=== PATIENT | female | born 1980 | race Caucasian/White ===

== ENCOUNTER → 2016-04-14 | Outpatient (CLI) | payer BC ==
[~2016-04-14] MED LIST: GLUC500T PO; IBUP80TA PO; INSUN SC; INSUR SC; PRENTAB13 PO
== END ==
LOC: M LAB 12:30
PROVIDERS: ATTEND Obstetrics & Gynecology
DX: O20.0 Threatened abortion (principal); Z3A.00 Weeks of gestation of pregnancy not specified

== ENCOUNTER → 2016-04-17 | Outpatient (CLI) | payer BC | LOC: M LAB 14:52 | PROVIDERS: ATTEND Obstetrics & Gynecology | DX: O20.0 Threatened abortion (principal); Z3A.00 Weeks of gestation of pregnancy not specified ==

== ENCOUNTER → 2016-04-24 | Outpatient (CLI) | payer BC | LOC: M LAB 16:11 | PROVIDERS: ATTEND Obstetrics & Gynecology | DX: O02.1 Missed abortion (principal) ==

== ENCOUNTER → 2016-05-08 | Outpatient (CLI) | payer BC | LOC: M LAB 16:04 | PROVIDERS: ATTEND Obstetrics & Gynecology | DX: O02.1 Missed abortion (principal) ==

== ENCOUNTER → 2017-04-02 | Outpatient (CLI) | payer BC ==
[2017-04-02 19:03] LABS: BASO % 0.2 % (0.0-1.0); EOS % 0.5 % (0.0-3.0); HEMATOCRIT 37.4 % (36.0-47.0); HEMOGLOBIN 12.4 g/dl (12.0-16.0); IMMATURE GRANULOCYTE % 0.5 % (0-0); LYMPH # 1.1 10^3/uL (1.5-4.5); LYMPH % 12.5 % (24.0-44.0); MEAN CORPUSCULAR HEMOGLOBIN 28.1 pg (27.0-33.0); MEAN CORPUSCULAR HGB CONC 33.2 g/dl (32.0-36.5); MEAN CORPUSCULAR VOLUME 84.6 fl (80.0-96.0); MONO # 0.4 10^3/uL (0.0-0.8); MONO % 4.2 % (0.0-5.0); NEUTROPHILS % 82.1 % (36.0-66.0); PLATELET COUNT, AUTOMATED 142 10^3/uL (150-450); RED BLOOD COUNT 4.42 10^6/uL (4.00-5.40); RED CELL DISTRIBUTION WIDTH 13.1 % (11.5-14.5); WHITE BLOOD COUNT 8.5 10^3/uL (4.0-10.0)
[2017-04-02 19:48] LABS: ESTIMATED AVERAGE GLUCOSE 220 MG/DL (60-110); HEMOGLOBIN A1c 9.3 %
[2017-04-02 22:07] LABS: CHLAMYDIA DNA AMPLIFICATION NEGATIVE (NEGATIVE); GC DNA AMPLIFICATION NEGATIVE (NEGATIVE)
[2017-04-05 09:00] LABS: RUBELLA IgG QUALITATIVE IMMUNE (IMMUNE)
[2017-04-05 09:02] LABS: HBsAg Prenatal NEGATIVE (NEGATIVE)
[2017-04-05 09:29] LABS: HEPATITIS C VIRUS ABY INDEX 0.1 INDEX (<0.8)
[2017-04-05 09:30] LABS: HIV 1&2 SCREEN CENTAUR NEGATIVE (NEGATIVE)
== END ==
LOC: M WUC 13:20
DX: O24.011 Pre-existing type 1 diabetes mellitus, in pregnancy, first trimester (principal); Z3A.11 11 weeks gestation of pregnancy
CPT/HCPCS: 83036

== ENCOUNTER → 2017-04-20 | Outpatient (CLI) | payer BC ==
[2017-04-20 13:54] LABS: TOTAL PROTEIN,RANDOM URINE 5.5 MG/DL (0.0-12.0)
[2017-04-20 14:12] LABS: ALT/SGPT 23 U/L (12-78); AST/SGOT 10 U/L (7-37); BILIRUBIN,TOTAL 0.2 MG/DL (0.2-1.0); CREATININE FOR GFR 0.48 MG/DL (0.55-1.02); GLOMERULAR FILTRATION RATE > 60.0 (>60); LDH LACTATE DEHYDROGENASE 150 U/L (84-246); URIC ACID 3.1 MG/DL (2.6-6.0)
== END ==
LOC: M WUC 10:45
DX: O24.011 Pre-existing type 1 diabetes mellitus, in pregnancy, first trimester (principal); Z3A.00 Weeks of gestation of pregnancy not specified
CPT/HCPCS: 84460

== ENCOUNTER → 2017-04-21 | Outpatient (CLI) | payer BC | LOC: M SMT 15:52 | DX: Z13.79 Encounter for other screening for genetic and chromosomal anomalies (principal) | CPT/HCPCS: 36415 ==

== ENCOUNTER → 2017-05-06 | Outpatient (CLI) | payer BC | LOC: M SMT 11:01 | DX: Z13.79 Encounter for other screening for genetic and chromosomal anomalies (principal) | CPT/HCPCS: 36415 ==

== ENCOUNTER → 2017-05-19 | Outpatient (CLI) | payer BC | LOC: M SMT 15:55 | DX: O09.522 Supervision of elderly multigravida, second trimester (principal); Z13.79 Encounter for other screening for genetic and chromosomal anomalies; Z3A.00 Weeks of gestation of pregnancy not specified | CPT/HCPCS: 36415 ==

== ENCOUNTER → 2017-07-01 | Outpatient (CLI) | payer BC ==
[2017-07-01 13:30] LABS: BASO % 0.2 % (0.0-1.0); EOS # 0.1 10^3/uL (0.0-0.50); EOS % 0.6 % (0.0-3.0); HEMATOCRIT 36.6 % (36.0-47.0); HEMOGLOBIN 12.2 g/dl (12.0-15.5); IMMATURE GRANULOCYTE % 0.9 % (0-3.0); LYMPH # 1.3 10^3/uL (1.5-4.5); LYMPH % 13.1 % (24.0-44.0); MEAN CORPUSCULAR HEMOGLOBIN 28.2 pg (27.0-33.0); MEAN CORPUSCULAR HGB CONC 33.3 g/dl (32.0-36.5); MEAN CORPUSCULAR VOLUME 84.5 fl (80.0-96.0); MONO # 0.5 10^3/uL (0.0-0.8); MONO % 5.4 % (0.0-5.0); NEUTROPHILS # 7.9 10^3/uL (1.8-7.7); NEUTROPHILS % 79.8 % (36.0-66.0); PLATELET COUNT, AUTOMATED 145 10^3/uL (150-450); RED BLOOD COUNT 4.33 10^6/uL (4.00-5.40); RED CELL DISTRIBUTION WIDTH 13.5 % (11.5-14.5); WHITE BLOOD COUNT 9.9 10^3/uL (4.0-10.0)
[2017-07-02 08:41] LABS: RH ONLY RHOGAM 1 1
== END ==
LOC: M SMT 08:40
DX: O24.112 Pre-existing type 2 diabetes mellitus, in pregnancy, second trimester (principal)
CPT/HCPCS: 85025

== ENCOUNTER → 2017-08-03 | Outpatient (CLI) | payer BC | LOC: M RAD 17:19 | DX: Z34.80 Encounter for supervision of other normal pregnancy, unspecified trimester (principal) ==

== ENCOUNTER → 2017-08-05 | Outpatient (CLI) | payer BC | LOC: M RAD 11:37 | DX: O24.012 Pre-existing type 1 diabetes mellitus, in pregnancy, second trimester (principal) | CPT/HCPCS: 76819 ==

== ENCOUNTER → 2017-08-16 | Outpatient (CLI) | payer BC | LOC: M RAD 17:17 | DX: O24.012 Pre-existing type 1 diabetes mellitus, in pregnancy, second trimester (principal); Z3A.32 32 weeks gestation of pregnancy | CPT/HCPCS: 76815 ==

== ENCOUNTER → 2017-08-24 | Outpatient (CLI) | payer BC ==
[2017-08-24 11:41] LABS: ESTIMATED AVERAGE GLUCOSE 134 MG/DL (60-110); HEMOGLOBIN A1c 6.3 %
== END ==
LOC: M SMT 09:45
DX: O24.013 Pre-existing type 1 diabetes mellitus, in pregnancy, third trimester (principal); Z36.89 Encounter for other specified antenatal screening
CPT/HCPCS: 83036

== ENCOUNTER → 2017-08-24 | Outpatient (CLI) | payer BC | LOC: M RAD 17:03 | DX: O24.013 Pre-existing type 1 diabetes mellitus, in pregnancy, third trimester (principal); Z3A.32 32 weeks gestation of pregnancy | CPT/HCPCS: 76815 ==

== ENCOUNTER → 2017-08-30 | Outpatient (CLI) | payer BC | LOC: M RAD 17:18 | DX: E11.9 Type 2 diabetes mellitus without complications (principal) ==

== ENCOUNTER → 2017-09-06 | Outpatient (CLI) | payer BC | LOC: M RAD 17:22 | DX: O24.012 Pre-existing type 1 diabetes mellitus, in pregnancy, second trimester (principal); Z3A.34 34 weeks gestation of pregnancy | CPT/HCPCS: 76815 ==

== ENCOUNTER → 2017-09-14 | Outpatient (CLI) | payer BC | LOC: M RAD 17:40 | DX: O24.012 Pre-existing type 1 diabetes mellitus, in pregnancy, second trimester (principal) | CPT/HCPCS: 76815 ==

== ENCOUNTER 2017-09-21 18:24 | Inpatient (IN) | payer BC ==
[2017-09-21] MEDS ORDERED: LR 1,000 ML IV (21:05)
[2017-09-21] MEDS: LACTATED RINGER'S 1000 ML IV (22:00)
[2017-09-21] MEDS ORDERED: D5W/0.9% SODIUM CHLORIDE 1,000 ML IV (22:00)
[2017-09-21] MEDS: BETAMETHASONE SOLUSPAN 6MG/ML INJ 5ML (J0702) IM (22:01)
[2017-09-21] MEDS: miSOPROStol 50 MCG 1/2 TAB (S0191) SL (22:01)
[2017-09-21 22:10] LABS: HEMATOCRIT 33.1 % (36.0-47.0); HEMOGLOBIN 11.2 g/dl (12.0-15.5); MEAN CORPUSCULAR HEMOGLOBIN 27.4 pg (27.0-33.0); MEAN CORPUSCULAR HGB CONC 33.8 g/dl (32.0-36.5); MEAN CORPUSCULAR VOLUME 80.9 fl (80.0-96.0); PLATELET COUNT, AUTOMATED 122 10^3/uL (150-450); RED BLOOD COUNT 4.09 10^6/uL (4.00-5.40); RED CELL DISTRIBUTION WIDTH 14.2 % (11.5-14.5); WHITE BLOOD COUNT 11.5 10^3/uL (4.0-10.0)
[2017-09-21 22:17] LABS: BEDSIDE GLUCOSE 140 MG/DL (70-105)
[2017-09-21] MEDS: PENICILLIN G POTASSIUM IV 5 MU in D5W MINI-BAG PLUS 100 ML IV (22:31)
[2017-09-21] MEDS: NS 1,000 ML IV (22:45)
[2017-09-21] MEDS: INSULIN HUMAN REGULAR 100 UNITS in NS 99 ML IV (22:45)
[2017-09-21 23:59] LABS: BEDSIDE GLUCOSE 130 MG/DL (70-105)
[2017-09-22] MEDS: INSULIN IV RATE CHANGE DOCUMENTATION ML/HR XX (02:03)
[2017-09-22] MEDS ORDERED: miSOPROStol 25 MCG 1/4 TAB (S0191) As Ordered (02:14)
[2017-09-22] MEDS: PENICILLIN G POTASSIUM IV 2.5 MU in APPROPRIATE DILUENT 1 EA IV ×4 (02:16→14:37)
[2017-09-22] MEDS: miSOPROStol 25 MCG 1/4 TAB (S0191) PV (02:30)
[2017-09-22 04:01] LABS: BEDSIDE GLUCOSE 137 MG/DL (70-105)
[2017-09-22 06:07] LABS: BEDSIDE GLUCOSE 143 MG/DL (70-105)
[2017-09-22] MEDS: OXYTOCIN DRIP 30 UNITS in APPROPRIATE DILUENT 1 EA IV ×2 (06:56→17:45)
[2017-09-22 07:40] LABS: BEDSIDE GLUCOSE 136 MG/DL (70-105)
[2017-09-22] MEDS: PRENATAL VITAMINS CHEWABLE TABLET PO (09:00)
[2017-09-22] MEDS ORDERED: FENTANYL 2MCG/ML ROPIVACAINE 0.2% IN 0.9% NACL 200ML IVBAG As Ordered (11:20)
[2017-09-22 12:03] LABS: BEDSIDE GLUCOSE 128 MG/DL (70-105)
[2017-09-22 12:03] LABS: BEDSIDE GLUCOSE 153 MG/DL (70-105)
[2017-09-22 12:06] LABS: BEDSIDE GLUCOSE 151 MG/DL (70-105)
[2017-09-22] MEDS ORDERED: ONDANSETRON 4MG/2ML VIAL (J2405) IV ×3 (12:30→18:00)
[2017-09-22] MEDS ORDERED: FENTANYL/ROPIVACAINE/NACL BAG 200 ML EPIDURAL (12:30)
[2017-09-22] MEDS ORDERED: EPIDURAL/PCA KEYS XX (12:30)
[2017-09-22] MEDS ORDERED: NALOXONE INJ 0.4 MG/1 ML VIAL (J2310) IV (12:30)
[2017-09-22] MEDS ORDERED: diphenhydrAMINE INJ 50MG/ML VIAL (J1200) IV (12:30)
[2017-09-22] MEDS ORDERED: LACTATED RINGER'S 1000 ML IV (12:30)
[2017-09-22] MEDS ORDERED: ePHEDrine SULFATE 25 MG/5 ML(5MG/ML) SYRINGE IV (12:30)
[2017-09-22] MEDS ORDERED: EPIDURAL COMMENT XX (12:30)
[2017-09-22] MEDS ORDERED: REFRIGERATOR IV KEYS XX (12:30)
[2017-09-22 14:12] LABS: BEDSIDE GLUCOSE 133 MG/DL (70-105)
[2017-09-22] MEDS ORDERED: LR 1,000 ML IV (15:27)
[2017-09-22] MEDS ORDERED: OXYTOCIN INJ 10 UNITS/ML VIAL (J2590) As Ordered ×4 (15:53→15:54)
[2017-09-22] MEDS ORDERED: LIDOCAINE 2% W/EPIN INJ 20ML **PRES FREE As Ordered ×2 (15:53)
[2017-09-22] MEDS ORDERED: ONDANSETRON 4MG/2ML VIAL (J2405) As Ordered (15:55)
[2017-09-22] MEDS ORDERED: SODIUM BICARBONATE 8.4% INJ 50 ML SYRINGE As Ordered (15:56)
[2017-09-22] MEDS: BICITRA 30ML SOLN UDC PO (15:58)
[2017-09-22] MEDS ORDERED: MORPHINE PRES-FREE INJ 10 MG/10 ML VIAL (J2274) As Ordered (16:00)
[2017-09-22] MEDS ORDERED: PHENYLephrine HCL 500 MCG/5 ML (100MCG/ML) SYRINGE (J2370) As Ordered (16:40)
[2017-09-22] MEDS ORDERED: MEASLES,MUMPS,RUBELLA VACCINE INJ (MMR-II) (90707) SC (17:45)
[2017-09-22] MEDS ORDERED: GLUCAGON FOR INJ 1 MG VIAL (J1610) SC (17:45)
[2017-09-22] MEDS ORDERED: PERCOCET 5MG/325MG TAB PO ×3 (17:45→18:00)
[2017-09-22] MEDS ORDERED: DEXTROSE 50% 50 ML SYRINGE IV (17:45)
[2017-09-22] MEDS ORDERED: GLUCOSE 4 GM CHEW TABLET PO (17:45)
[2017-09-22] MEDS ORDERED: MOM 30ML SUSPENSION UDC PO (17:45)
[2017-09-22] MEDS ORDERED: DOCUSATE SODIUM 100 MG CAP PO (17:45)
[2017-09-22] MEDS ORDERED: OXYTOCIN 30 UNITS IN 0.9% NaCl 500ML IV BAG (J2590) As Ordered (17:54)
[2017-09-22] MEDS ORDERED: MEPERIDINE INJ 25 MG/ML VIAL (J2175) IV (18:00)
[2017-09-22] MEDS ORDERED: KETOROLAC 30 MG/ML VIAL (J1885) IV (18:00)
[2017-09-22 18:28] LABS: CORD GAS ABE A -7.3; CORD GAS HCO3 A 20.1 MEQ/L; CORD GAS O2 SAT A 51.8 %; CORD GAS PCO2 A 47.3 mmHg; CORD GAS PH A 7.247 UNITS; CORD GAS PO2 A 22.9 mmHg; CORD GAS SBC A 17.6 MEQ/L; CORD GAS TCO2 A 21.6 MEQ/L
[2017-09-22 18:29] LABS: CORD GAS ABE V -5.5; CORD GAS HCO3 V 20.6 MEQ/L; CORD GAS O2 SAT V 73.1 %; CORD GAS PCO2 V 42.1 mmHg; CORD GAS PH V 7.307 UNITS; CORD GAS PO2 V 31.1 mmHg; CORD GAS SBC V 19.4 MEQ/L; CORD GAS TCO2 V 21.9 MEQ/L
[2017-09-22] MEDS: LR 1,000 ML IV (19:00)
[2017-09-22 21:06] LABS: BEDSIDE GLUCOSE 174 MG/DL (70-105)
[2017-09-22] MEDS: HumaLOG INSULIN (NovoLOG) PER UNIT SC (21:52)
[2017-09-22] MEDS: KETOROLAC 30 MG/ML VIAL (J1885) IV (22:15)
[2017-09-22 23:46] LABS: BEDSIDE GLUCOSE 198 MG/DL (70-105)
[2017-09-23] MEDS: KETOROLAC 30 MG/ML VIAL (J1885) IV ×3 (03:55→16:03)
[2017-09-23 06:43] LABS: HEMATOCRIT 28.8 % (36.0-47.0); HEMOGLOBIN 9.7 g/dl (12.0-15.5); MEAN CORPUSCULAR HEMOGLOBIN 27.5 pg (27.0-33.0); MEAN CORPUSCULAR HGB CONC 33.7 g/dl (32.0-36.5); MEAN CORPUSCULAR VOLUME 81.6 fl (80.0-96.0); PLATELET COUNT, AUTOMATED 125 10^3/uL (150-450); RED BLOOD COUNT 3.53 10^6/uL (4.00-5.40); RED CELL DISTRIBUTION WIDTH 14.1 % (11.5-14.5); WHITE BLOOD COUNT 12.1 10^3/uL (4.0-10.0)
[2017-09-23 06:54] LABS: BEDSIDE GLUCOSE 184 MG/DL (70-105)
[2017-09-23] MEDS: HumaLOG INSULIN (NovoLOG) PER UNIT SC ×3 (07:04→17:30)
[2017-09-23] MEDS ORDERED: HumuLIN N INSULIN (NovoLIN N) PER UNIT SC (07:30)
[2017-09-23 09:28] LABS: FETAL SCREEN PROF. 1 1
[2017-09-23] MEDS: RHOGAM 300 MCG (1500 IU) INJ (J2790) IM (09:52)
[2017-09-23] MEDS: PRENATAL VITAMINS CHEWABLE TABLET PO (09:52)
[2017-09-23 10:31] LABS: BEDSIDE GLUCOSE 213 MG/DL (70-105)
[2017-09-23] MEDS: HumuLIN N INSULIN (NovoLIN N) PER UNIT SC ×2 (10:35→18:03)
[2017-09-23 12:21] LABS: BEDSIDE GLUCOSE 159 MG/DL (70-105)
[2017-09-23 17:41] LABS: BEDSIDE GLUCOSE 173 MG/DL (70-105)
[2017-09-23] MEDS: HumuLIN R (REGULAR) INSULIN (NovoLIN R) **100U/ML** PER UNIT SC (18:03)
[2017-09-23 21:44] LABS: BEDSIDE GLUCOSE 180 MG/DL (70-105)
[2017-09-24] MEDS: IBUPROFEN 800 MG TAB PO ×4 (00:21→23:52)
[2017-09-24 06:52] LABS: BEDSIDE GLUCOSE 146 MG/DL (70-105)
[2017-09-24] MEDS: HumaLOG INSULIN (NovoLOG) PER UNIT SC ×3 (07:30→18:02)
[2017-09-24] MEDS: PRENATAL VITAMINS CHEWABLE TABLET PO (08:47)
[2017-09-24] MEDS: HumuLIN R (REGULAR) INSULIN (NovoLIN R) **100U/ML** PER UNIT SC ×2 (08:49→18:03)
[2017-09-24] MEDS: HumuLIN N INSULIN (NovoLIN N) PER UNIT SC ×2 (08:49→18:05)
[2017-09-24 12:44] LABS: BEDSIDE GLUCOSE 113 MG/DL (70-105)
[2017-09-24 17:56] LABS: BEDSIDE GLUCOSE 122 MG/DL (70-105)
[2017-09-24 20:22] LABS: BEDSIDE GLUCOSE 119 MG/DL (70-105)
[2017-09-24 23:59] LABS: BEDSIDE GLUCOSE 69 MG/DL (70-105)
[2017-09-25 01:23] LABS: BEDSIDE GLUCOSE 129 MG/DL (70-105)
[2017-09-25 06:49] LABS: BEDSIDE GLUCOSE 79 MG/DL (70-105)
[2017-09-25] MEDS: HumuLIN R (REGULAR) INSULIN (NovoLIN R) **100U/ML** PER UNIT SC ×2 (07:30→09:14)
[2017-09-25] MEDS: HumuLIN N INSULIN (NovoLIN N) PER UNIT SC ×2 (07:30→09:20)
[2017-09-25] MEDS: HumaLOG INSULIN (NovoLOG) PER UNIT SC (07:30)
[2017-09-25 08:35] LABS: BEDSIDE GLUCOSE 118 MG/DL (70-105)
[2017-09-25] MEDS: PRENATAL VITAMINS CHEWABLE TABLET PO (08:50)
[2017-09-25] MEDS: IBUPROFEN 800 MG TAB PO (08:51)
[2017-09-25 09:21] LABS: BEDSIDE GLUCOSE 151 MG/DL (70-105)
[2017-09-25] MEDS: ADACEL/BOOSTRIX VACCINE (DIPHTH/PERTUSS/ACELL/TETANUS)0.5ML SYR (90715) IM (10:15)
== END 2017-09-25 10:40 | disposition home or self-care (01) | DRG 540 ==
LOC: M LDO 18:24 → M OBS 09-22 19:18 → M LDI 21:08
PROVIDERS: Obstetrics & Gynecology
PROC: 10D00Z1 Extraction of Products of Conception, Low, Open Approach (ICD-10-PCS; principal; 2017-09-22 16:15)
PROC: 3E0P7VZ Introduction of Hormone into Female Reproductive, Via Natural or Artificial Opening (ICD-10-PCS; 2017-09-22 16:15)
DX: O24.32 Unspecified pre-existing diabetes mellitus in childbirth (principal); Z68.43 Body mass index [BMI] 50.0-59.9, adult; O99.214 Obesity complicating childbirth; E66.01 Morbid (severe) obesity due to excess calories; O62.0 Primary inadequate contractions; Z37.0 Single live birth; Z3A.36 36 weeks gestation of pregnancy; O09.523 Supervision of elderly multigravida, third trimester

== ENCOUNTER → 2017-09-21 | Outpatient (CLI) | payer BC | LOC: M RAD 17:12 | DX: O24.012 Pre-existing type 1 diabetes mellitus, in pregnancy, second trimester (principal) | CPT/HCPCS: 76819 ==

== ENCOUNTER → 2018-04-25 | Outpatient (REF) | payer BC ==
[~2018-04-25] MED LIST changes: +IBUP1TAB7 PO; +OXYC1TAB23 PO; -PRENTAB13 PO; +PRENTAB20 PO
[2018-04-25 17:57] LABS: BASO % 0.2 % (0.0-1.0); EOS # 0.2 10^3/uL (0.0-0.50); EOS % 1.9 % (0.0-3.0); HEMATOCRIT 41.3 % (36.0-47.0); HEMOGLOBIN 13.8 g/dl (12.0-15.5); MEAN CORPUSCULAR HEMOGLOBIN 27.1 pg (27.0-33.0); MEAN CORPUSCULAR HGB CONC 33.4 g/dl (32.0-36.5); MONO # 0.5 10^3/uL (0.0-0.8); MONO % 6.4 % (0.0-5.0); NEUTROPHILS # 5.5 10^3/uL (1.8-7.7); NEUTROPHILS % 67.1 % (36.0-66.0); PLATELET COUNT, AUTOMATED 169 10^3/uL (150-450); WHITE BLOOD COUNT 8.3 10^3/uL (4.0-10.0)
[2018-04-25 18:04] LABS: ALBUMIN 3.7 GM/DL (3.2-5.2); ALT/SGPT 29 U/L (12-78); BILIRUBIN,TOTAL 0.3 MG/DL (0.2-1.0); BLOOD UREA NITROGEN 12 MG/DL (7-18); CARBON DIOXIDE LEVEL 26 MEQ/L (21-32); CHLORIDE LEVEL 102 MEQ/L (98-107); CHOLESTEROL LEVEL 196 MG/DL (<200); CHOLESTEROL RISK RATIO 7.538 (<5); GLOMERULAR FILTRATION RATE > 60.0 (>58); GLUCOSE, FASTING 178 MG/DL (70-100); HDL CHOLESTEROL 26 MG/DL (>40); NON-HDL-C 170 MG/DL; POTASSIUM SERUM 4.7 MEQ/L (3.5-5.1); SODIUM LEVEL 137 MEQ/L (136-145); TOTAL PROTEIN 7.1 GM/DL (6.4-8.2); TRIGLYCERIDES LEVEL 459 MG/DL (<150)
[2018-04-25 18:19] LABS: CREATININE, URINE 67.2 MG/DL; MALB URINE SIEMENS 12.4 MG/L; MAU/CREAT RATIO 18.4 MCG/MG (0.0-30.0)
[2018-04-25 18:30] LABS: HEMOGLOBIN A1c 10.7 %
== END ==
LOC: M SFHCLERA 12:36
PROVIDERS: ATTEND Family Medicine
DX: E11.65 Type 2 diabetes mellitus with hyperglycemia (principal)

== ENCOUNTER → 2018-04-25 | Outpatient (REF) | payer BC ==
[2018-04-29 00:07] LABS: HPV HYBRID CAPTURE II Negative (Negative)
== END ==
LOC: M LAB REF 09:34
PROVIDERS: ATTEND Obstetrics & Gynecology
DX: Z12.4 Encounter for screening for malignant neoplasm of cervix (principal)

== ENCOUNTER → 2018-05-03 | Outpatient (CLI) | payer BC ==
--- NOTE | 2018-05-03 17:00 | REPMRS ---
Patient History The patient states she had a clinical breast exam in March 2018.Patient had first child at age 34. denied. Patient Shielded. Family history of ovarian cancer at age 47 in mother. Digital Mammo Screening Bilat: May 03, 2018 - Exam #: [id number] Bilateral CC and MLO view(s) were taken. Technologist: Yusra Means, Technologist No prior studies available for comparison. FINDINGS: There are scattered fibroglandular densities. There is no evidence of dominant mass, architectural distortion, or clustered microcalcification typical of malignancy. 3-D tomosynthesis shows no additional findings. Assessment: BI-RADS/ACR category 1 mammogram. Negative Mammogram. Recommendation Routine screening mammogram of both breasts in 1 year (for women over age 40). This patient's Lifetime Breast Cancer RIsk is estimated at 16.9 %. This mammogram was interpreted with the aid of an FDA-approved computer-aided dectection system. Electronically Signed By: Corey Ramirez MD 05/03/18 [id number]
== END ==
LOC: M RAD 12:50
PROVIDERS: ATTEND Obstetrics & Gynecology
DX: Z12.31 Encounter for screening mammogram for malignant neoplasm of breast (principal)

== ENCOUNTER 2018-05-30 14:25 | Observation (INO) | payer BC, OTHER ==
[~2018-05-30] VITALS: Ht 167.6 cm; Wt 137.3 kg
[2018-05-30] MEDS ORDERED: PERCOCET 5MG/325MG TAB PO ONE (18:00)
[2018-05-30 18:21] LABS: HEMOGLOBIN 14.3 g/dl (12.0-15.5); MEAN CORPUSCULAR HEMOGLOBIN 26.8 pg (27.0-33.0); MEAN CORPUSCULAR HGB CONC 32.5 g/dl (32.0-36.5); MEAN CORPUSCULAR VOLUME 82.4 fl (80.0-96.0); PLATELET COUNT, AUTOMATED 177 10^3/uL (150-450); RED BLOOD COUNT 5.34 10^6/uL (4.00-5.40); WHITE BLOOD COUNT 11.3 10^3/uL (4.0-10.0)
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
[2018-05-30 19:28] LABS: BLOOD UREA NITROGEN 13 MG/DL (7-18); CALCIUM LEVEL 7.7 MG/DL (8.5-10.1); CARBON DIOXIDE LEVEL 22 MEQ/L (21-32); CHLORIDE LEVEL 105 MEQ/L (98-107); CREATININE FOR GFR 0.84 MG/DL (0.55-1.30); GLOMERULAR FILTRATION RATE > 60.0 (>58); GLUCOSE, FASTING 262 MG/DL (70-100); POTASSIUM SERUM 4.6 MEQ/L (3.5-5.1); SODIUM LEVEL 136 MEQ/L (136-145)
[2018-05-30] MEDS ORDERED: ISOVUE-370 76% 100ML VIAL (Q9967) As Ordered ONE (19:37)
[2018-05-30] MEDS ORDERED: PERCOCET 5MG/325MG TAB PO PRN (22:30)
[2018-05-30] MEDS ORDERED: KETOROLAC 30 MG/ML VIAL (J1885) IV PRN (22:30)
[2018-05-30] MEDS ORDERED: ACETAMINOPHEN TAB 650MG DOSE (2X325MG) PO PRN (22:30)
[2018-05-30] MEDS ORDERED: DEXTROSE 50% 50 ML SYRINGE IV PRN (22:30)
[2018-05-30] MEDS ORDERED: GLUCAGON FOR INJ 1 MG VIAL (J1610) SC PRN (22:30)
[2018-05-30] MEDS ORDERED: GLUCOSE 4 GM CHEW TABLET PO PRN (22:30)
[2018-05-30] MEDS ORDERED: ONDANSETRON 4MG/2ML VIAL (J2405) IV PRN (22:30)
[2018-05-30] MEDS ORDERED: MORPHINE 4 MG/ML 1ML VIAL/SYRINGE (J2270) IV PRN (22:30)
[2018-05-30] MEDS ORDERED: INSUN SC (22:44)
[2018-05-30 23:45] VITALS: BP 128/82
[2018-05-31] MEDS: PERCOCET 5MG/325MG TAB PO PRN ×2 (03:19→12:56)
[2018-05-31 04:45] VITALS: BP 124/56
--- NOTE | 2018-05-31 08:23 | REP ---
PA and lateral chest: Comparison is the right rib series dated 05/30/2018. Lung hoffman are clear. Cardiac size is normal. The jakub, mediastinum, skeletal structures are unremarkable. Impression: Negative PA and lateral chest. Electronically Signed by Juan Daniel Singletary MD 05/31/2018 08:14 A
[2018-05-31 08:40] LABS: BASO % 0.2 % (0.0-1.0); EOS # 0.1 10^3/uL (0.0-0.50); EOS % 1.5 % (0.0-3.0); HEMATOCRIT 40.3 % (36.0-47.0); LYMPH # 1.2 10^3/uL (1.5-4.5); LYMPH % 19.5 % (24.0-44.0); MEAN CORPUSCULAR HEMOGLOBIN 26.6 pg (27.0-33.0); MEAN CORPUSCULAR HGB CONC 32.3 g/dl (32.0-36.5); MEAN CORPUSCULAR VOLUME 82.6 fl (80.0-96.0); MONO # 0.5 10^3/uL (0.0-0.8); MONO % 7.6 % (0.0-5.0); NEUTROPHILS # 4.2 10^3/uL (1.8-7.7); NEUTROPHILS % 70.7 % (36.0-66.0); PLATELET COUNT, AUTOMATED 133 10^3/uL (150-450); RED BLOOD COUNT 4.88 10^6/uL (4.00-5.40)
[2018-05-31] MEDS ORDERED: HumuLIN R (REGULAR) INSULIN (NovoLIN R) **100U/ML** PER UNIT SC SCH (09:00)
[2018-05-31] MEDS ORDERED: ENOXAPARIN 40 MG/0.4 ML SYRINGE (J1650) SC SCH (09:00)
[2018-05-31] MEDS ORDERED: HumuLIN N INSULIN (NovoLIN N) PER UNIT SC SCH (09:00)
[2018-05-31] MEDS: HumaLOG INSULIN (NovoLOG) PER UNIT SC SCH ×2 (09:14→12:00)
[2018-05-31 11:21] LABS: BLOOD UREA NITROGEN 10 MG/DL (7-18); CALCIUM LEVEL 8.4 MG/DL (8.5-10.1); CARBON DIOXIDE LEVEL 22 MEQ/L (21-32); CHLORIDE LEVEL 103 MEQ/L (98-107); CREATININE FOR GFR 0.86 MG/DL (0.55-1.30); GLOMERULAR FILTRATION RATE > 60.0 (>58); GLUCOSE, FASTING 315 MG/DL (70-100); POTASSIUM SERUM 4.5 MEQ/L (3.5-5.1); SODIUM LEVEL 135 MEQ/L (136-145)
[2018-05-31] MEDS ORDERED: PERC5TAB12 PO (12:26)
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
== END 2018-05-31 13:10 | disposition home or self-care (01) ==
LOC: M ED 14:25 → M ED INP 22:18 → M MS4PR 23:40
PROVIDERS: ADMIT Surgery; ATTEND Surgery
DX: S22.41XA Multiple fractures of ribs, right side, initial encounter for closed fracture (principal); V49.40XA Driver injured in collision with unspecified motor vehicles in traffic accident, initial encounter; Y92.410 Unspecified street and highway as the place of occurrence of the external cause; E11.9 Type 2 diabetes mellitus without complications; R16.1 Splenomegaly, not elsewhere classified; Z79.4 Long term (current) use of insulin; Z79.899 Other long term (current) drug therapy; E66.01 Morbid (severe) obesity due to excess calories; Y99.9 Unspecified external cause status; Y93.89 Activity, other specified
CPT/HCPCS: 36415; 71046; 71101; 74177; 80048; 85025; 85027; 99284; J1650; Q9967

== ENCOUNTER → 2018-07-04 | Outpatient (REF) | payer BC ==
[~2018-07-04] MED LIST changes: +PERC5TAB12 PO
[2018-07-04 14:34] LABS: HEMOGLOBIN A1c 9.4 %
[2018-07-05 15:31] LABS: C-PEPTIDE 1.9 ng/mL (1.1-4.4)
[2018-07-07 00:07] LABS: ISLET CELL ANTIBODIES Negative (Neg:<1:1)
== END ==
LOC: M SFHCLERA 09:39
PROVIDERS: ATTEND Family Medicine
DX: E11.65 Type 2 diabetes mellitus with hyperglycemia (principal)

== ENCOUNTER → 2018-08-16 | Outpatient (CLI) | payer BC ==
[2018-08-16 18:42] LABS: HEMATOCRIT 38.6 % (36.0-47.0); HEMOGLOBIN 12.5 g/dl (12.0-15.5); MEAN CORPUSCULAR HEMOGLOBIN 26.7 pg (27.0-33.0); MEAN CORPUSCULAR HGB CONC 32.4 g/dl (32.0-36.5); MEAN CORPUSCULAR VOLUME 82.3 fl (80.0-96.0); PLATELET COUNT, AUTOMATED 167 10^3/uL (150-450); RED BLOOD COUNT 4.69 10^6/uL (4.00-5.40); WHITE BLOOD COUNT 7.3 10^3/uL (4.0-10.0)
[2018-08-16 18:57] LABS: FREE T4 0.79 NG/DL (0.76-1.46); THYROID STIMULATING HORMONE 3.06 uIU/ML (0.358-3.740)
== END ==
LOC: M SMT 13:01
PROVIDERS: ATTEND Obstetrics & Gynecology
DX: N92.4 Excessive bleeding in the premenopausal period (principal)

== ENCOUNTER → 2018-08-17 | Outpatient (CLI) | payer BC ==
--- NOTE | 2018-08-17 15:37 | REP ---
Clinical: Menorrhagia. Technique: Transabdominal pelvic ultrasound followed by transvaginal examination for better evaluation of the endometrium and adnexa with color Doppler evaluation of the ovaries. Comparison: None. Findings: Bladder is under distended. Heterogeneous anteverted uterus measures 8.9 x 4.3 x 5.8 cm and include scattered small parenchymal calcifications. A possible vague posterior fundal fibroid cannot be excluded measuring 1.4 x 1.0 x 1.0 cm. Multiple Nabothian cysts are identified. Endometrial complex measures 5.2 mm thickness. Bilateral ovaries are normal in appearance and vascularity without torsion. Right ovary measures 3.2 x 2.3 x 2.9 cm; RI 0.43. Left ovary measures 2.7 x 1.9 x 2.8 cm; RI 0.47. No pelvic free fluid or adnexal mass lesion. Impression: 1. Heterogeneous anteverted uterus with suggestions for 1.4 cm fundal fibroid. Small Nabothian cysts. 2. Normal bilateral ovaries without torsion. Electronically Signed by Mendez Ruvalcaba MD 08/17/2018 03:29 P
== END ==
LOC: M RAD 07:33
PROVIDERS: ATTEND Obstetrics & Gynecology
DX: N85.4 Malposition of uterus (principal); N92.4 Excessive bleeding in the premenopausal period

== ENCOUNTER 2018-09-02 15:46 | Observation (INO) | payer BC ==
[~2018-09-02] VITALS: Ht 167.6 cm; Wt 132.0 kg
[~2018-09-02 15:46] MED LIST changes: -ATOR1TAB21 PO; -FERR325T16 PO; -LISI2.5T76 PO; -MICR1TAB18 PO; -VICT18IN SC
[2018-09-02] MEDS ORDERED: MICR1TAB18 PO (15:52)
[2018-09-02] MEDS ORDERED: VICT18IN SC (15:52)
[2018-09-02 16:44] LABS: INR 0.98; PROTHROMBIN TIME 13.1 SECONDS (12.1-14.4)
[2018-09-02 16:47] LABS: HEMATOCRIT 18.8 % (36.0-47.0); MEAN CORPUSCULAR HEMOGLOBIN 24.6 pg (27.0-33.0); MEAN CORPUSCULAR HGB CONC 30.3 g/dl (32.0-36.5); PLATELET COUNT, AUTOMATED 194 10^3/uL (150-450); RED BLOOD COUNT 2.32 10^6/uL (4.00-5.40); WHITE BLOOD COUNT 6.5 10^3/uL (4.0-10.0)
[2018-09-02 16:52] LABS: HEMOGLOBIN 5.7 g/dl (12.0-15.5)
[2018-09-02 16:53] LABS: BLOOD UREA NITROGEN 7 MG/DL (7-18); CALCIUM LEVEL 8.3 MG/DL (8.5-10.1); CARBON DIOXIDE LEVEL 23 MEQ/L (21-32); CHLORIDE LEVEL 107 MEQ/L (98-107); CREATININE FOR GFR 0.76 MG/DL (0.55-1.30); GLOMERULAR FILTRATION RATE > 60.0 (>58); GLUCOSE, FASTING 265 MG/DL (70-100); POTASSIUM SERUM 4.3 MEQ/L (3.5-5.1); SODIUM LEVEL 140 MEQ/L (136-145)
[2018-09-02] MEDS ORDERED: LISI2.5T76 PO (18:28)
[2018-09-02] MEDS ORDERED: ATOR1TAB21 PO (18:28)
[2018-09-02] MEDS ORDERED: ACETAMINOPHEN TAB 650MG DOSE (2X325MG) PO PRN (18:30)
--- NOTE | 2018-09-02 18:40 | HPEPDOC ---
General Date of Admission 09/02/18 Date of Service: Sep 02, 2018 Chief Complaint The patient is a 38-year-old female admitted with a reason for visit of Needs Blood Transfusion. Source: Patient Exam Limitations: No limitations Severity: Moderate Associated Symptoms: Shortness of breath, Weakness, Dizziness History of Present Illness 38 year old female with PMH of Diabetes, morbid obesity, fibroids with abnormal heavy vaginal bleeding presented to the ED with 12 days h/o worsening dizziness, light headedness and dyspnea or exertion. She has been having increasing SOB climbing up the stairs and would have to stop and take breaths and for the past 3 days she has been continuously dizzy. In the ED she was found to have a Hb of 5.7. She did not have any chest pain . she did have palpitations or exertion. No orthopnea on pnd. Her vaginal bleeding has stopped completely 6 days ago. She was admitted for symptomatic anemia and acute blood loss anemia. Home Medications Scheduled Insulin Human NPH (Novolin N) 1 Ml Susp, 45 UNITS SC BID, (Reported) Insulin Human Regular (Novolin R) 1 Ml Soln, 45 UNITS SC BID, (Reported) Scheduled PRN Oxycodone HCl/Acetaminophen (Percocet 5-325 mg Tablet) 1 Tab Tab, 1-2 TAB PO Q4- 6HP PRN for pain Miscellaneous Medications Liraglutide (Victoza 2-Que) 0.6 Mg/0.1 Ml Pen.injctr, (Reported) Norethindrone AC-Eth Estradiol (Microgestin 21 1.5-30 Tab) 1 Each Tablet, (Reported) Allergies Coded Allergies: No Known Allergies (Unverified , 11/20/14) Past Medical History Medical History Diabetes, obesity Surgical History C section, lasik for the eyes Family History Significant Family History: Asthma (ister), Cancer (grandparents, uncle), Diabetes (mother, maternal grand parents, brother), Hypertension (sister) Social History * Smoker: Denies Alcohol: Denies Drugs: denies A-FIB/CHADSVASC A-FIB History Current/History of A-Fib/PAF?: No Review of Systems Constitutional: Reports: Weakness, Fatigue; Denies: Chills, Fever, Night Sweats Eyes: Denies: Pain, Vision change ENT: Denies: Head Aches, Ear Pain, Dysphagia Skin: Denies: Rash, Lesions, Breakdown Pulmonary: Reports: Dyspnea; Denies: Cough, Pleuritic Chest Pain Cardiovascular: Reports: Palpitations, Lt Headedness; Denies: Chest Pain, Orthopnea, Paroxysmal Noc. Dyspnea, Edema Gastrointestinal: Denies: Nausea, Vomiting, Abdominal Pain, Diarrhea Genitourinary: Denies: Dysuria, Frequency, Incontinence, Retention Hematologic: Reports: Bleeding Excessively Musculoskeletal: Denies: Neck Pain, Back Pain, Joint Pain, Muscle Pain, Spasms Neurological: Denies: Weakness, Numbness, Change in speech, Confusion Psych: Reports: Mood Normal Physical Examination General Exam: Positive: Alert, Cooperative, No Acute Distress Eye Exam: Positive: PERRLA, Conjunctiva & lids normal, EOMI; Negative: Sclera icteric ENT Exam: Positive: Atraumatic, Mucous membr. moist/pink, Pharynx Normal Neck Exam: Positive: Supple; Negative: JVD, thyromegaly Chest Exam: Positive: Clear to auscultation, Normal air movement Heart Exam: Positive: Tachycardic, Regular Rhythm, Normal S1, Normal S2; Negative: Murmurs, Rubs Telemetry: Positive: No significant arrhythmia Abdomen Exam: Positive: Normal bowel sounds, Soft; Negative: Tenderness, Hepatospenomegaly Extremity Exam: Positive: Normal pulses; Negative: Clubbing, Cyanosis, Edema Skin Exam: Positive: Nl turgor and temperature; Negative: Breakdown, Lesion Neuro Exam: Positive: Normal Gait, Normal Speech, Cranial Nerves 3-12 NL, Reflexes 2+ Psych Exam: Positive: Mood NL, Memory Intact Vital Signs Vital Signs Date Time Temp Pulse Resp B/P (MAP) Pulse Ox O2 Delivery O2 Flow Rate FiO2 09/02/18 16:46 100 99 09/02/18 16:45 18 98/55 (69) 09/02/18 15:47 97.0 Room Air Laboratory Data Labs 24H Laboratory Tests 2 09/02/18 16:08: Nucleated Red Blood Cells % (auto) 1.1H, Prothrombin Time 13.1, Prothromb Time International Ratio 0.98, Anion Gap 10, Glomerular Filtration Rate > 60.0, Blood Urea Nitrogen 7, Creatinine 0.76, Sodium Level 140, Potassium Level 4.3, Chloride Level 107, Carbon Dioxide Level 23, Calcium Level 8.3L CBC/BMP Laboratory Tests 09/02/18 16:08 Red Blood Count 2.32 L, Mean Corpuscular Volume 81.0, Mean Corpuscular Hemoglobin 24.6 L, Mean Corpuscular Hemoglobin Concent 30.3 L, Red Cell Distribution Width 14.9 H, Calcium Level 8.3 L Assessment/Plan 38 year old female with PMH of Diabetes, morbid obesity, fibroids with abnormal heavy vaginal bleeding presented to the ED with 12 days h/o worsening dizziness, light headedness and dyspnea or exertion. She has been having increasing SOB climbing up the stairs and would have to stop and take breaths and for the past 3 days she has been continuously dizzy. In the ED she was found to have a Hb of 5.7. She did not have any chest pain . she did have palpitations or exertion. No orthopnea on pnd. Her vaginal bleeding has stopped completely 6 days ago. She was admitted for symptomatic anemia and acute blood loss anemia. Acute blood loss anemia from abnormal prolonged vaginal bleeding thought to be due to abnormal reaction to a depo medication and fibroids. It has stopped a week ago following closely with her [employer]. will transfuse 3 units of prbc then check CBC. Diabetes continue home medications consistent carb diet FS ac and HS Morbid obesity complicating care. DVT prophylaxis orerd Plan / VTE VTE Prophylaxis Ordered?: Yes SHANNAN TRAYLOR MD Sep 02, 2018 18:40
--- NOTE | 2018-09-02 20:47 | REPVR ---
EXAM: US Pelvis Complete, Transabdominal EXAM DATE/TIME: 09/02/2018 7:43 PM CLINICAL HISTORY: 38 years old, female; Signs and symptoms; Other: Vaginal bleeding/ dizziness; Prior surgery; Surgery date: 6+ months; Surgery type: C section; Patient HX: Vaginal bleeding x 1 1/2 month, recently on bcp's, bleeding has stopped since TECHNIQUE: Imaging protocol: Real-time transabdominal pelvic ultrasound with image documentation. Complete exam. COMPARISON: US PELVIC NON-OB COMPLETE 08/17/2018 7:52 AM FINDINGS: Uterus/cervix: The uterus and straight heterogeneous myometrium and measures 8.4 cm in its cephalocaudad dimension and 4.6 x 6.4 cm in its AP and lateral dimensions. Small nabothian cysts are noted. The endometrium measures 7 mm. Right adnexa: The right ovary measures 3.3 x 1.9 x 1.9 cm and demonstrates blood flow. Left adnexa: The left ovary measures 3.0 x 1.8 x 2.7 cm and demonstrates blood flow. Free fluid: None. Bladder: The urinary bladder is normal and measures 8.7 x 6.4 x 5.4 cm. IMPRESSION: 1. Heterogeneous myometrium and slight uterine enlargement which may reflect leiomyomatous change with no specific fibroids seen. 2. Otherwise negative pelvic sonogram. Electronically signed by: Hernán Quick On 09/02/2018 20:47:03 PM
[2018-09-02 22:07] VITALS: BP 130/66
[2018-09-02] MEDS: HumuLIN R (REGULAR) INSULIN (NovoLIN R) **100U/ML** PER UNIT SC SCH (23:44)
[2018-09-02] MEDS: HumuLIN N INSULIN (NovoLIN N) PER UNIT SC SCH (23:45)
[2018-09-03 07:30] LABS: HEMATOCRIT 25.9 % (36.0-47.0); MEAN CORPUSCULAR HEMOGLOBIN 26.6 pg (27.0-33.0); MEAN CORPUSCULAR HGB CONC 30.9 g/dl (32.0-36.5); PLATELET COUNT, AUTOMATED 151 10^3/uL (150-450); RED BLOOD COUNT 3.01 10^6/uL (4.00-5.40); WHITE BLOOD COUNT 6.6 10^3/uL (4.0-10.0)
[2018-09-03 07:46] LABS: BLOOD UREA NITROGEN 5 MG/DL (7-18); CALCIUM LEVEL 7.7 MG/DL (8.5-10.1); CARBON DIOXIDE LEVEL 23 MEQ/L (21-32); CHLORIDE LEVEL 109 MEQ/L (98-107); CREATININE FOR GFR 0.69 MG/DL (0.55-1.30); GLOMERULAR FILTRATION RATE > 60.0 (>58); GLUCOSE, FASTING 172 MG/DL (70-100); SODIUM LEVEL 140 MEQ/L (136-145)
[2018-09-03 08:00] VITALS: BP 117/71
[2018-09-03 08:07] LABS: BASO % 0.2 % (0.0-1.0); EOS # 0.1 10^3/uL (0.0-0.50); EOS % 1.4 % (0.0-3.0); LYMPH # 1.2 10^3/uL (1.5-4.5); LYMPH % 19.1 % (24.0-44.0); MONO # 0.4 10^3/uL (0.0-0.8); MONO % 5.7 % (0.0-5.0); NEUTROPHILS # 4.7 10^3/uL (1.8-7.7); NEUTROPHILS % 72.5 % (36.0-66.0)
[2018-09-03] MEDS: HumuLIN N INSULIN (NovoLIN N) PER UNIT SC SCH (08:08)
[2018-09-03] MEDS: HumuLIN R (REGULAR) INSULIN (NovoLIN R) **100U/ML** PER UNIT SC SCH (08:08)
[2018-09-03] MEDS ORDERED: ATORVASTATIN 20 MG TAB PO SCH (09:00)
--- NOTE | 2018-09-03 10:08 | DS.PDOC ---
Discharge Summary General Date of Admission Sep 02, 2018 at 18:16 Date of Discharge 09/03/18 Discharge Summary PROCEDURES PERFORMED DURING STAY: [None]. DISCHARGE DIAGNOSES: Acute blood loss anemia from abnormal vaginal bleeding symptomatic anemia Insulin Diabetes Morbid obesity COMPLICATIONS/CHIEF COMPLAINT: Symptomatic Anemia. HISTORY OF PRESENT ILLNESS: please see history and physical HOSPITAL COURSE: 38 year old female with PMH of Diabetes, morbid obesity, fibroids with abnormal heavy vaginal bleeding presented to the ED with 12 days h/o worsening dizziness, light headedness and dyspnea or exertion. She has been having increasing SOB climbing up the stairs and would have to stop and take yeni aths and for the past 3 days she has been continuously dizzy. In the ED she was found to have a Hb of 5.7. She did not have any chest pain . she did have palpitations or exertion. No orthopnea on pnd. Her vaginal bleeding has stopped completely 6 days ago. She was admitted for symptomatic anemia and acute blood loss anemia. Acute blood loss anemia from abnormal prolonged vaginal bleeding thought to be due to abnormal reaction to a depo medication and fibroids. It has stopped a week ago following closely with her FIELD ARTILLERY TARGETING TECHNICIAN. transfused 4 units of prbc Iron supplements Diabetes continue home medications consistent carb diet Morbid obesity complicating care. DISCHARGE MEDICATIONS: Please see below. ALLERGIES: Please see below. PHYSICAL EXAMINATION ON DISCHARGE: VITAL SIGNS: Please see below. General Exam: Positive: Alert, Cooperative, No Acute Distress Eye Exam: Positive: PERRLA, Conjunctiva & lids normal, EOMI; Negative: Sclera icteric ENT Exam: Positive: Atraumatic, Mucous membr. moist/pink, Pharynx Normal Neck Exam: Positive: Supple; Negative: JVD, thyromegaly Chest Exam: Positive: Clear to auscultation, Normal air movement Heart Exam: Positive: Tachycardic, Regular Rhythm, Normal S1, Normal S2; Negative: Murmurs, Rubs Telemetry: Positive: No significant arrhythmia Abdomen Exam: Positive: Normal bowel sounds, Soft; Negative: Tenderness, Hepatospenomegaly Extremity Exam: Positive: Normal pulses; Negative: Clubbing, Cyanosis, Edema Skin Exam: Positive: Nl turgor and temperature; Negative: Breakdown, Lesion Neuro Exam: Positive: Normal Gait, Normal Speech, Cranial Nerves 3-12 NL, Reflexes 2+ Psych Exam: Positive: Mood NL, Memory Intact LABORATORY DATA: Please see below. ACTIVITY: [As tolerated]. DIET: Carb consistent DISCHARGE PLAN: Home DISPOSITION: . DISCHARGE INSTRUCTIONS: FOllow up with PMD in 2 weeks FOllow up with FIELD ARTILLERY TARGETING TECHNICIAN as directed. DISCHARGE CONDITION: [Stable]. TIME SPENT ON DISCHARGE: 35 minutes. Vital Signs/I&Os Vital Signs Date Time Temp Pulse Resp B/P (MAP) Pulse Ox O2 Delivery O2 Flow Rate FiO2 09/03/18 08:00 97.9 89 18 117/71 (86) 98 09/02/18 15:47 Room Air I&O- Last 24 Hours up to 6 AM 09/03/18 05:59 Intake Total 360 ml Output Total 600 ml Balance -240 ml Laboratory Data Labs 24H Laboratory Tests 2 09/02/18 16:08: Nucleated Red Blood Cells % (auto) 1.1H, Prothrombin Time 13.1, Prothromb Time International Ratio 0.98, Anion Gap 10, Glomerular Filtration Rate > 60.0, Blood Urea Nitrogen 7, Creatinine 0.76, Sodium Level 140, Potassium Level 4.3, Chloride Level 107, Carbon Dioxide Level 23, Calcium Level 8.3L 09/02/18 21:26: Bedside Glucose (Misc Panel) 323H 09/03/18 07:03: Nucleated Red Blood Cells % (auto) 0.9H, Anion Gap 8, Glomerular Filtration Rate > 60.0, Blood Urea Nitrogen 5L, Creatinine 0.69, Sodium Level 140, Potassium Level 4.0, Chloride Level 109H, Carbon Dioxide Level 23, Calcium Level 7.7L, Immature Granulocyte % (Auto) 1.1, White Blood Count 6.6, Red Blood Count 3.01L, Hemoglobin 8.0#L, Hematocrit 25.9L, Mean Corpuscular Volume 86.0, Mean Corpuscular Hemoglobin 26.6L, Mean Corpuscular Hemoglobin Concent 30.9L, Red Cell Distribution Width 15.0H, Platelet Count 151, Neutrophils (%) (Auto) 72.5H, Lymphocytes (%) (Auto) 19.1L, Monocytes (%) (Auto) 5.7H, Eosinophils (%) (Auto) 1.4, Basophils (%) (Auto) 0.2, Neutrophils # (Auto) 4.7, Lymphocytes # (Auto) 1.2L, Monocytes # (Auto) 0.4, Eosinophils # (Auto) 0.1, Basophils # (Auto) 0.0, Immature Granulocyte # (Auto) 0.1H CBC/BMP Laboratory Tests 09/02/18 16:08 Red Blood Count 2.32 L, Mean Corpuscular Volume 81.0, Mean Corpuscular Hemoglobin 24.6 L, Mean Corpuscular Hemoglobin Concent 30.3 L, Red Cell Distribution Width 14.9 H, Calcium Level 8.3 L 09/03/18 07:03 Red Blood Count 3.01 L, Mean Corpuscular Volume 86.0, Mean Corpuscular Hemoglobin 26.6 L, Mean Corpuscular Hemoglobin Concent 30.9 L, Red Cell Distribution Width 15.0 H, Calcium Level 7.7 L, Neutrophils (%) (Auto) 72.5 H, Lymphocytes (%) (Auto) 19.1 L, Monocytes (%) (Auto) 5.7 H, Eosinophils (%) (Auto) 1.4, Basophils (%) (Auto) 0.2, Neutrophils # (Auto) 4.7, Lymphocytes # (Auto) 1.2 L, Monocytes # (Auto) 0.4, Eosinophils # (Auto) 0.1, Basophils # (Auto) 0.0 FSBS Laboratory Tests Test 09/02/18 21:26 Range/Units Bedside Glucose (Misc Panel) 323 70-105 MG/DL Discharge Medications Scheduled Atorvastatin Calcium (Atorvastatin Calcium) 20 Mg Tablet, 20 MG PO DAILY, (Reported) Insulin Human NPH (Novolin N) 1 Ml Susp, 45 UNITS SC BID, (Reported) Insulin Human Regular (Novolin R) 1 Ml Soln, 45 UNITS SC BID, (Reported) Liraglutide (Victoza 2-Que) 0.6 Mg/0.1 Ml Pen.injctr, 1.2 MG SC DAILY, (Reported) Lisinopril (Lisinopril) 2.5 Mg Tablet, 2.5 MG PO DAILY, (Reported) Norethindrone AC-Eth Estradiol (Microgestin 21 1.5-30 Tab) 1 Each Tablet, 2 TABS PO QPM, (Reported) TAKES 2 TABS DAILY FOR 4 DAYS THEN DECREASE TO 1 TAB DAILY STARTING ON 09/05/18 Allergies Coded Allergies: No Known Allergies (Unverified , 11/20/14) SHANNAN TRAYLOR MD Sep 03, 2018 10:08
[2018-09-03] MEDS ORDERED: FERR325T16 PO (10:09)
[2018-09-03] MEDS ORDERED: FUROSEMIDE 20 MG/2 ML VIAL (J1940) IV ONE (11:00)
[2018-09-03 12:00] VITALS: BP 123/70
[2018-09-03 13:45] VITALS: BP 125/66
[2018-09-03 15:23] LABS: HEMATOCRIT 29.1 % (36.0-47.0); HEMOGLOBIN 9.3 g/dl (12.0-15.5); MEAN CORPUSCULAR HEMOGLOBIN 27.4 pg (27.0-33.0); MEAN CORPUSCULAR VOLUME 85.6 fl (80.0-96.0); PLATELET COUNT, AUTOMATED 155 10^3/uL (150-450); WHITE BLOOD COUNT 6.9 10^3/uL (4.0-10.0)
== END 2018-09-03 16:40 | disposition home or self-care (01) ==
LOC: M ED 15:46 → M ED INP 18:16 → M PED 21:50
PROVIDERS: ADMIT Internal Medicine Nephrology; ATTEND Internal Medicine Nephrology
DX: D62 Acute posthemorrhagic anemia (principal); N92.6 Irregular menstruation, unspecified; D64.9 Anemia, unspecified; E11.9 Type 2 diabetes mellitus without complications; Z79.4 Long term (current) use of insulin; E66.01 Morbid (severe) obesity due to excess calories; R06.00 Dyspnea, unspecified; Z79.899 Other long term (current) drug therapy
CPT/HCPCS: 36415; 36430; 76830; 76856; 80048; 85027; 85610; 86850; 86900; 86901; 86920; 93976; 96374; 99285; J1940; P9016

== ENCOUNTER → 2018-09-02 | Outpatient (CLI) | payer BC ==
[~2018-09-02] MED LIST changes: +ATOR1TAB21 PO; +FERR325T16 PO; +LISI2.5T76 PO; +MICR1TAB18 PO; +VICT18IN SC
[2018-09-02 13:42] LABS: HEMATOCRIT 19.2 % (36.0-47.0); MEAN CORPUSCULAR HEMOGLOBIN 23.9 pg (27.0-33.0); MEAN CORPUSCULAR HGB CONC 29.2 g/dl (32.0-36.5); MEAN CORPUSCULAR VOLUME 82.1 fl (80.0-96.0); PLATELET COUNT, AUTOMATED 200 10^3/uL (150-450); RED BLOOD COUNT 2.34 10^6/uL (4.00-5.40); WHITE BLOOD COUNT 7.7 10^3/uL (4.0-10.0)
[2018-09-02 13:54] LABS: HEMOGLOBIN 5.6 g/dl (12.0-15.5)
== END ==
LOC: M SMT 09:24
PROVIDERS: ATTEND Obstetrics & Gynecology
DX: N92.6 Irregular menstruation, unspecified (principal)

== ENCOUNTER 2018-09-19 13:38 | Observation (INO) | payer BC ==
[~2018-09-19] VITALS: Ht 167.6 cm; Wt 131.4 kg
[~2018-09-19 13:38] MED LIST changes: -FERR32TA PO; -IBUP200T45 PO
[2018-09-19 14:46] LABS: BLOOD UREA NITROGEN 6 MG/DL (7-18); CALCIUM LEVEL 7.9 MG/DL (8.5-10.1); CARBON DIOXIDE LEVEL 23 MEQ/L (21-32); CHLORIDE LEVEL 107 MEQ/L (98-107); CREATININE FOR GFR 0.68 MG/DL (0.55-1.30); GLOMERULAR FILTRATION RATE > 60.0 (>58); GLUCOSE, FASTING 252 MG/DL (70-100); POTASSIUM SERUM 3.9 MEQ/L (3.5-5.1); SODIUM LEVEL 138 MEQ/L (136-145)
[2018-09-19] MEDS ORDERED: FERR32TA PO (14:57)
[2018-09-19] MEDS ORDERED: IBUP200T45 PO (14:58)
[2018-09-19] MEDS ORDERED: diphenhydrAMINE 25 MG CAP PO ONE (15:00)
[2018-09-19] MEDS ORDERED: ACETAMINOPHEN TAB 650MG DOSE (2X325MG) PO ONE (15:00)
--- NOTE | 2018-09-19 15:14 | HPEPDOC ---
General Date of Admission 09/19/2018 Date of Service: Sep 19, 2018 Primary Care Physician: CECILIO MOLINA MD Other Providers Rashida Attending Physician: WADE LEE MD Chief Complaint The patient is a 38-year-old female admitted with a reason for visit of Vaginal Bleeding. Source: Patient Exam Limitations: No limitations Timing/Duration: Day(s) Severity: Moderate Associated Symptoms: Other History of Present Illness 38 years old female with past medical history of menorrhagia was recently admitted to this hospital was transfusion was sent again from Dr. butcher's office with low hemoglobin and hematocrit. Patient has been complaining of excessive vaginal bleed since mid July, which is progressively got worse and she was admitted, but again she started bleeding and sent to the hospital for admission Pt complaining of tiredness and fatigue, but no chest pain or shortness of breath, patient was found to have a hemoglobin of 6.6, and was decided to admit patient to medical service with COUNTY HOME DEMONSTRATION AGENT as consult. Dr. Pearson will be called from the ER by Dr. Lynn Home Medications Scheduled Atorvastatin Calcium (Atorvastatin Calcium) 20 Mg Tablet, 20 MG PO QPM, (Reported) Ferrous Gluconate (Ferrous Gluconate) 324 Mg Tablet, 324 MG PO DAILY, (Reported) Insulin Human NPH (Novolin N) 1 Ml Susp, 45 UNITS SC BID, (Reported) Insulin Human Regular (Novolin R) 1 Ml Soln, 45 UNITS SC BID, (Reported) Liraglutide (Victoza 2-Que) 0.6 Mg/0.1 Ml Pen.injctr, 1.2 MG SC DAILY, (Reported) Lisinopril (Lisinopril) 2.5 Mg Tablet, 2.5 MG PO QPM, (Reported) Norethindrone AC-Eth Estradiol (Microgestin 21 1.5-30 Tab) 1 Each Tablet, 3 TABS PO DAILY, (Reported) TAKING 3 TABS PO DAILY FOR 4 DAYS, ON 3RD DAY, THEN MAINTAIN ON 2 TABS DAILY THEREAFTER Scheduled PRN Ibuprofen (Ibu-200) 200 Mg Tablet, 400 MG PO Q6H PRN for PAIN, (Reported) Allergies Coded Allergies: No Known Allergies (Unverified , 11/20/14) Past Medical History Medical History Menorrhagia, diabetes mellitus Surgical History C-sections and Lasc surgery of eyes Family History Significant Family History: No pertinent family hx Social History * Smoker: Denies Alcohol: Denies Drugs: denies A-FIB/CHADSVASC A-FIB History Current/History of A-Fib/PAF?: No Review of Systems Constitutional: Reports: Weakness, Fatigue Eyes: Denies: Pain, Vision change, Conjunctivae inflammation, Eyelid inflammation, Redness, Other ENT: Denies: Head Aches, Ear Pain, Dysphagia, Sinus Congestion, Post Nasal Drip, Sore Throat, Epistaxis, Other Symptoms Skin: Denies: Rash, Lesions, Jaundice, Bruising, Itching, Dry, Breakdown, Nail Changes, Other Pulmonary: Denies: Dyspnea, Cough, Pleuritic Chest Pain, Other Symptoms Cardiovascular: Denies: Chest Pain, Palpitations, Orthopnea, Paroxysmal Noc. Dyspnea, Edema, Lt Headedness, Other Symptoms Gastrointestinal: Denies: Nausea, Vomiting, Abdominal Pain, Diarrhea, Constipation, Melena, Hematochezia, Other Symptoms Genitourinary: Reports: Other Symptoms (. Vaginal bleed) Hematologic: Reports: Bleeding Excessively Endocrine: Denies: Polydipsia, Polyphagia, Polyuria, Heat Intolerance, Cold Intolerance, Other Endocrine Sx Musculoskeletal: Denies: Neck Pain, Back Pain, Shoulder Pain, Arm Pain, Hand Pain, Leg Pain, Foot Pain, Joint Pain, Muscle Pain, Spasms, Other Symptoms Neurological: Denies: Weakness, Numbness, Incoordination, Change in speech, Confusion, Seizures, Other Symptoms Psych: Denies: Mood Normal, Anxiety, Depression, Memory Issues, Thoughts of Self Harm, Anger, Thoughts of Harming Other, Other Psych Physical Examination General Exam: Positive: Alert, Cooperative Eye Exam: Positive: PERRLA, Conjunctiva & lids normal ENT Exam: Positive: Atraumatic Neck Exam: Positive: Supple Chest Exam: Positive: Clear to auscultation, Normal air movement Heart Exam: Positive: Rate Normal, Normal S1 Abdomen Exam: Positive: Normal bowel sounds, Soft Skin Exam: Positive: Nl turgor and temperature Neuro Exam: Positive: Normal Gait, Normal Speech Psych Exam: Positive: Mental status NL, Mood NL, Oriented x 3 Vital Signs Vital Signs Date Time Temp Pulse Resp B/P (MAP) Pulse Ox O2 Delivery O2 Flow Rate FiO2 09/19/18 14:38 91 96 Room Air 09/19/18 14:30 112/64 (80) 09/19/18 13:39 96.6 17 Laboratory Data Labs 24H Laboratory Tests 2 09/19/18 14:11: Anion Gap 8, Glomerular Filtration Rate > 60.0, Blood Urea Nitrogen 6L, Creati nine 0.68, Sodium Level 138, Potassium Level 3.9, Chloride Level 107, Carbon Dioxide Level 23, Calcium Level 7.9L CBC/BMP Laboratory Tests 09/19/18 14:11 Calcium Level 7.9 L Problems (1) Anemia Status: Acute Problem Text: An anemia most likely secondary to menorrhagia Admit to medical floor Transfuse 2 units of PRBC H&H daily and posttransfusion INSPECTOR FINAL ASSEMBLY ELECTRICAL consult with Dr. Pearson called by ED physician Further recommendation as per [facility] DEMONSTRATION AGENT Continue home meds including NPH insulin Hold regular insulin Fingerstick blood sugar with coverage , Tylenol, Benadryl when necessary , We will closely monitor patient (2) Menorrhagia Status: Acute (3) Diabetes mellitus Status: Chronic Plan / VTE VTE Prophylaxis Ordered?: Yes WADE LEE MD Sep 19, 2018 15:14
[2018-09-19] MEDS ORDERED: GLUCOSE 4 GM CHEW TABLET PO PRN (15:15)
[2018-09-19] MEDS ORDERED: GLUCAGON FOR INJ 1 MG VIAL (J1610) SC PRN (15:15)
[2018-09-19] MEDS ORDERED: DEXTROSE 50% 50 ML SYRINGE IV PRN (15:15)
[2018-09-19] MEDS: NS 1,000 ML IV SCH (15:42)
[2018-09-19 16:15] VITALS: BP 95/53
[2018-09-19] MEDS: HumaLOG INSULIN (NovoLOG) PER UNIT SC SCH (17:33)
[2018-09-19 20:00] VITALS: BP 102/53
--- NOTE | 2018-09-19 20:44 | CR ---
DATE OF CONSULTATION: 09/19/2018 CONSULTING SERVICE: OB-SENIOR PROJECT COORDINATOR HISTORY: A 38-year-old 2, para 2 female admitted through the emergency room with heavy vaginal bleeding for the past week. She has had heavy bleeding on and off for the last 3-4 months. She was admitted for transfusion approximately 2 weeks ago. She presents with the same problem. She had Nexplanon removed on 09/02/2018 and was on control pills after that. She is planning on tubal sterilization as she does not desire future childbearing. MEDICAL HISTORY: 1. Menorrhagia with possible fibroids. 2. Diabetes mellitus. SURGICAL HISTORY: 1. section times one. 2. LASIK surgery. OBSTETRICAL HISTORY: 1. In 2015, term vaginal delivery. 2. In 2017, primary section. FAMILY HISTORY: None. SOCIAL HISTORY: The patient denies cigarettes, alcohol, or drug use. PHYSICAL EXAMINATION: Blood pressure is 112/64, pulse 91, oxygen saturation 96% on room air, afebrile. She is in no apparent distress but appears pale. Head and Neck Exam: Normal. Lungs: Clear. Heart: Regular rate and rhythm. Abdomen: Nontender, soft, nondistended. No masses palpable. Sterile Vaginal Exam: Deferred. Extremities: Nontender. Trace edema. LABORATORY: Hemoglobin 6.6 grams per deciliter. Labs otherwise normal. Ultrasound reveals mildly enlarged uterus, heterogenous in appearance with possible myomatous changes. No distinct fibroids seen. ASSESSMENT: A 38-year-old 2, para 2 female with menorrhagia, possible fibroids and severe anemia as a result. PLAN: The patient has already had discussion for possible hysterectomy with Dr. Hennessy. Alternatively, could consider endometrial ablation procedure as the patient's fibroids do not appear overwhelming large, and she may get a reasonable result from this procedure. Plan to transfuse to adequate hemoglobin level and plan surgical treatment as definitive care.
[2018-09-19] MEDS ORDERED: HumaLOG INSULIN (NovoLOG) PER UNIT SC SCH (21:00)
[2018-09-19] MEDS ORDERED: ATORVASTATIN 20 MG TAB PO SCH (21:00)
[2018-09-19] MEDS: HumuLIN N INSULIN (NovoLIN N) PER UNIT SC SCH (21:02)
[2018-09-20] VITALS: BP 110/58
[2018-09-20 04:00] VITALS: BP 103/50
[2018-09-20 06:56] LABS: HEMATOCRIT 24.1 % (36.0-47.0); HEMOGLOBIN 7.6 g/dl (12.0-15.5); MEAN CORPUSCULAR HEMOGLOBIN 26.4 pg (27.0-33.0); MEAN CORPUSCULAR HGB CONC 31.5 g/dl (32.0-36.5); MEAN CORPUSCULAR VOLUME 83.7 fl (80.0-96.0); PLATELET COUNT, AUTOMATED 184 10^3/uL (150-450); RED BLOOD COUNT 2.88 10^6/uL (4.00-5.40); WHITE BLOOD COUNT 6.9 10^3/uL (4.0-10.0)
[2018-09-20 07:18] LABS: BLOOD UREA NITROGEN 5 MG/DL (7-18); CARBON DIOXIDE LEVEL 25 MEQ/L (21-32); CHLORIDE LEVEL 108 MEQ/L (98-107); CREATININE FOR GFR 0.71 MG/DL (0.55-1.30); GLOMERULAR FILTRATION RATE > 60.0 (>58); GLUCOSE, FASTING 198 MG/DL (70-100); POTASSIUM SERUM 4.5 MEQ/L (3.5-5.1); SODIUM LEVEL 138 MEQ/L (136-145)
[2018-09-20] MEDS: HumaLOG INSULIN (NovoLOG) PER UNIT SC SCH ×3 (07:39→17:30)
[2018-09-20 07:45] VITALS: BP 104/58
[2018-09-20] MEDS ORDERED: FERROUS GLUCONATE 324 MG TAB PO SCH (09:00)
[2018-09-20] MEDS: HumuLIN N INSULIN (NovoLIN N) PER UNIT SC SCH (09:11)
--- NOTE | 2018-09-20 10:10 | DS.PDOC ---
Discharge Summary General Date of Admission Sep 19, 2018 at 15:03 Date of Discharge 09/20/18 Primary Care Physician: ISH HENNESSY MD. Attending Physician: WADE LEE MD Specialist/Consultants Involve: A Discharge Summary PROCEDURES PERFORMED DURING STAY: None. ADMITTING DIAGNOSES: 1. Anemia. menorrhagia. DISCHARGE DIAGNOSES: 1. Anemia, menorrhagia. COMPLICATIONS/CHIEF COMPLAINT: Symptomatic Anemia. HISTORY OF PRESENT ILLNESS: 1 years old female with past medical history of menorrhagia was recently admitted to this hospital was transfusion was sent again from Dr. butcher's office with low hemoglobin and hematocrit. Patient has be en complaining of excessive vaginal bleed since mid July, which is progressively got worse and she was admitted, but again she started bleeding and sent to the hospital for admission Pt complaining of tiredness and fatigue, but no chest pain or shortness of breath, patient was found to have a hemoglobin of 6.6, and was decided to admit patient to medical service with USED EQUIPMENT SALES REPRESENTATIVE as consult. Dr. Pearson will be called from the ER by Dr. Lynn. HOSPITAL COURSE: Patient was admitted for the blood transfusion for and for observation. Patient received 2 units of PRBC transfusion last night. H&H is stable at 8.7. Patient is clinically stable, less bleeding and will be discharged home. Patient is scheduled to see Dr. Hilliard in a.m. for preop evaluation and possible surgery soon as an outpatient. Motrin and estradiol for stopped. DISCHARGE MEDICATIONS: Please see below. ALLERGIES: Please see below. PHYSICAL EXAMINATION ON DISCHARGE: VITAL SIGNS: Please see below. GENERAL: Within normal limits HEENT: PERRLA NECK: Supple CARDIOVASCULAR EXAMINATION: S1, S2, regular RESPIRATORY EXAMINATION: Clear to A&P ABDOMINAL EXAMINATION: Benign EXTREMITIES: No clubbing, cyanosis SKIN: Normal NEUROLOGICAL EXAMINATION: Normal PSYCHIATRIC EXAMINATION: Normal LABORATORY DATA: Please see below. IMAGING: No major PROGNOSIS: Good ACTIVITY: As tolerated. DIET: As tolerated DISCHARGE PLAN: Follow with Dr. Hennessy in a.m. DISPOSITION: . Home DISCHARGE INSTRUCTIONS: 1. Follow-up with the USED EQUIPMENT SALES REPRESENTATIVE in a.m. for preop consultation. ITEMS TO FOLLOWUP ON ON OUTPATIENT: 1. Preop workup. DISCHARGE CONDITION: Stable. TIME SPENT ON DISCHARGE: 30 minutes. Vital Signs/I&Os Vital Signs Date Time Temp Pulse Resp B/P (MAP) Pulse Ox O2 Delivery O2 Flow Rate FiO2 09/20/18 07:45 97.6 86 18 104/58 (73) 97 09/19/18 15:45 Room Air I&O- Last 24 Hours up to 6 AM 09/20/18 06:00 Intake Total 1380 ml Output Total 950 ml Balance 430 ml Laboratory Data Labs 24H Laboratory Tests 2 09/19/18 14:11: Anion Gap 8, Glomerular Filtration Rate > 60.0, Blood Urea Nitrogen 6L, Creatinine 0.68, Sodium Level 138, Potassium Level 3.9, Chloride Level 107, Carbon Dioxide Level 23, Calcium Level 7.9L 09/19/18 16:39: Bedside Glucose (Misc Panel) 198H 09/19/18 20:51: Bedside Glucose (Misc Panel) 241H 09/20/18 06:37: Anion Gap 5L, Glomerular Filtration Rate > 60.0, Blood Urea Nitrogen 5L, Creatinine 0.71, Sodium Level 138, Potassium Level 4.5, Chloride Level 108H, Carbon Dioxide Level 25, Calcium Level 8.0L, Nucleated Red Blood Cells % (auto) 0.0 CBC/BMP Laboratory Tests 09/19/18 14:11 Calcium Level 7.9 L 09/20/18 06:37 Calcium Level 8.0 L, Red Blood Count 2.88 L, Mean Corpuscular Volume 83.7, Mean Corpuscular Hemoglobin 26.4 L, Mean Corpuscular Hemoglobin Concent 31.5 L, Red Cell Distribution Width 15.0 H FSBS Laboratory Tests Test 09/19/18 16:39 09/19/18 20:51 Range/Units Bedside Glucose (Misc Panel) 198 241 70-105 MG/DL Discharge Medications Scheduled Atorvastatin Calcium (Atorvastatin Calcium) 20 Mg Tablet, 20 MG PO QPM, (Reported) Ferrous Gluconate (Ferrous Gluconate) 324 Mg Tablet, 324 MG PO DAILY, (Reported) Insulin Human NPH (Novolin N) 1 Ml Susp, 45 UNITS SC BID, (Reported) Insulin Human Regular (Novolin R) 1 Ml Soln, 45 UNITS SC BID, (Reported) Liraglutide (Victoza 2-Que) 0.6 Mg/0.1 Ml Pen.injctr, 1.2 MG SC DAILY, (Reported) Lisinopril (Lisinopril) 2.5 Mg Tablet, 2.5 MG PO QPM, (Reported) Allergies Coded Allergies: No Known Allergies (Unverified , 11/20/14) WADE LEE MD Sep 20, 2018 10:10
[2018-09-20] MEDS ORDERED: ACETAMINOPHEN TAB 650MG DOSE (2X325MG) PO ONE (12:00)
[2018-09-20] MEDS ORDERED: diphenhydrAMINE 25 MG CAP PO ONE (12:00)
[2018-09-20 12:53] VITALS: BP 105/64
[2018-09-20] MEDS: NS 1,000 ML IV SCH (15:00)
[2018-09-20 15:44] VITALS: BP 108/69
[2018-09-20 17:43] LABS: HEMATOCRIT 28.9 % (36.0-47.0); HEMOGLOBIN 9.2 g/dl (12.0-15.5)
== END 2018-09-20 18:35 | disposition home or self-care (01) ==
LOC: M ED 13:38 → M ED INP 15:03 → M PED 16:14
PROVIDERS: ADMIT Internal Medicine; ATTEND Internal Medicine
DX: D64.9 Anemia, unspecified (principal); N92.0 Excessive and frequent menstruation with regular cycle; E11.9 Type 2 diabetes mellitus without complications; Z79.4 Long term (current) use of insulin; Z79.899 Other long term (current) drug therapy
CPT/HCPCS: 36415; 36430; 80048; 85014; 85018; 85027; 86850; 86900; 86901; 86920; 99284; P9016

== ENCOUNTER → 2018-09-19 | Outpatient (CLI) | payer BC ==
[~2018-09-19] MED LIST changes: +ATOR1TAB21 PO; +FERR325T16 PO; +FERR32TA PO; +IBUP200T45 PO; +LISI2.5T76 PO; +MICR1TAB18 PO; +VICT18IN SC
[2018-09-19 09:43] LABS: HEMATOCRIT 21.9 % (36.0-47.0); MEAN CORPUSCULAR HEMOGLOBIN 25.1 pg (27.0-33.0); MEAN CORPUSCULAR HGB CONC 30.1 g/dl (32.0-36.5); MEAN CORPUSCULAR VOLUME 83.3 fl (80.0-96.0); PLATELET COUNT, AUTOMATED 229 10^3/uL (150-450); RED BLOOD COUNT 2.63 10^6/uL (4.00-5.40); WHITE BLOOD COUNT 7.5 10^3/uL (4.0-10.0)
[2018-09-19 10:21] LABS: HEMOGLOBIN 6.6 g/dl (12.0-15.5)
== END ==
LOC: M WUC 08:17
PROVIDERS: ATTEND Obstetrics & Gynecology
DX: N92.4 Excessive bleeding in the premenopausal period (principal)

== ENCOUNTER 2018-09-28 05:42 | Day surgery (SDC) | payer BC ==
[~2018-09-28] VITALS: Ht 165.1 cm; Wt 126.6 kg
[~2018-09-28 05:42] MED LIST changes: +FERR32TA PO; +IBUP200T45 PO
[2018-09-28] MEDS ORDERED: LR 1,000 ML IV ONE ×2 (06:00→07:30)
[2018-09-28 06:33] LABS: HEMATOCRIT 33.8 % (36.0-47.0); HEMOGLOBIN 10.6 g/dl (12.0-15.5); MEAN CORPUSCULAR HEMOGLOBIN 26.1 pg (27.0-33.0); MEAN CORPUSCULAR HGB CONC 31.4 g/dl (32.0-36.5); MEAN CORPUSCULAR VOLUME 83.3 fl (80.0-96.0); PLATELET COUNT, AUTOMATED 161 10^3/uL (150-450); RED BLOOD COUNT 4.06 10^6/uL (4.00-5.40)
[2018-09-28] MEDS ORDERED: BUPIVACAINE HCL 0.25% 30 ML VIAL As Ordered ONE (07:12)
[2018-09-28] MEDS ORDERED: ROCURONIUM BROMIDE 50 MG/5 ML VIAL As Ordered ONE (07:22)
[2018-09-28] MEDS ORDERED: PROPOFOL 200 MG/20 ML VIAL As Ordered ONE (07:22)
[2018-09-28] MEDS ORDERED: LIDOCAINE 2% INJ 100 MG/5 ML SDV (FOR ANES.) As Ordered ONE (07:22)
[2018-09-28] MEDS ORDERED: fentaNYL 100 MCG/2 ML INJECTION (J3010) As Ordered ONE (07:23)
[2018-09-28] MEDS ORDERED: HumaLOG INSULIN (NovoLOG) PER UNIT As Ordered ONE (07:23)
[2018-09-28] MEDS ORDERED: MIDAZOLAM INJ 2 MG/2 ML VIAL (J2250) As Ordered ONE (07:23)
[2018-09-28] MEDS ORDERED: dexameTHASONE 4 MG/ML 1ML VIAL (J1100) As Ordered ONE (07:35)
[2018-09-28 07:39] LABS: URINE PREG TEST NEGATIVE (NEGATIVE)
[2018-09-28] MEDS ORDERED: PHENYLephrine HCL 500 MCG/5 ML (100MCG/ML) SYRINGE (J2370) As Ordered ONE (08:05)
[2018-09-28] MEDS ORDERED: ACETAMINOPHEN 1000MG 100ML IV BTL (OFIRMEV) (J0131 PER 10MG) As Ordered ONE (08:05)
[2018-09-28] MEDS ORDERED: ePHEDrine SULFATE 25 MG/5 ML(5MG/ML) SYRINGE As Ordered ONE (08:16)
[2018-09-28] MEDS ORDERED: KETOROLAC 60 MG/2 ML VIAL (J1885) As Ordered ONE (08:24)
[2018-09-28] MEDS ORDERED: GLYCOPYRROLATE INJ 0.2 MG/ML 2 ML VIAL As Ordered ONE (08:24)
[2018-09-28] MEDS ORDERED: NEOSTIGMINE 10 MG/10 ML VIAL (J2710) As Ordered ONE (08:24)
[2018-09-28] MEDS ORDERED: ONDANSETRON 4MG/2ML VIAL (J2405) As Ordered ONE (08:28)
[2018-09-28] MEDS: oxyCODONE 5MG TAB PO PRN ×2 (09:15→09:58)
[2018-09-28] MEDS ORDERED: oxyCODONE 5MG TAB As Ordered ONE (09:18)
[2018-09-28] MEDS ORDERED: LR 1,000 ML IV SCH (09:30)
[2018-09-28] MEDS ORDERED: ONDANSETRON 4MG/2ML VIAL (J2405) IV PRN (09:30)
[2018-09-28] MEDS ORDERED: PERCOCET 5MG/325MG TAB PO PRN ×2 (09:30)
[2018-09-28] MEDS ORDERED: HYDROMORPHONE HCL 0.5 MG/ 0.5 ML SYRINGE (J1170 PER 1) IV PRN (09:30)
[2018-09-28] MEDS ORDERED: fentaNYL 100 MCG/2 ML INJECTION (J3010) IV PRN (09:30)
--- NOTE | 2018-09-28 09:48 | RO ---
DATE OF PROCEDURE: 09/28/2018 PREOPERATIVE DIAGNOSES: 1. Abnormal uterine bleeding. 2. Satisfied parity with undesired fertility. DIAGNOSES: 1. Abnormal uterine bleeding. 2. Satisfied parity with undesired fertility. PROCEDURES PERFORMED: 1. Hysteroscopy with dilation and curettage and NovaSure ablation. 2. Diagnostic operative laparoscopy with bilateral salpingectomy. SURGEON: Jessica Hennessy MD MANAGER INVENTORY MANAGEMENT: Suzanne Mercer, PGY-3 ANESTHESIA: General endotracheal anesthesia. BLOOD LOSS: 5 mL. INTRAVENOUS FLUIDS: 800 mL of Lactated Ringer's solution. URINE OUTPUT: 300 mL. SPECIMENS: 1. Endometrial curettings. 2. Bilateral fallopian tubes. OPERATIVE FINDINGS: Hysteroscopic findings showed a thickened endometrium. Bilateral ostia were visualized. Cavity dimensions were 6.5 x 4.6. Post ablation hysteroscopic findings revealed desiccation of endometrium. Laparoscopic findings revealed normal pelvic anatomy to include bilateral adnexa and uterus. DESCRIPTION OF OPERATION: After informed consent was obtained and written consent was reviewed, the patient was brought to the operating room where she was placed under general endotracheal anesthesia. She was then placed lithotomy position, was prepped and draped in a normal sterile fashion. A time out in the operating room was then performed identifying the patient, procedure be performed as well as drug allergies. A bivalve speculum was placed revealing the cervix. The anterior lip of the cervix was grasped with a single tooth tenaculum. The uterine length was then obtained. The cervix was then dilated. The hysteroscope was then advanced through the endometrium revealing a thickened endometrial cavity with bilateral ostia visualized. Curettage was then performed and that sample was sent to pathology. NovaSure endometrial ablation was then advanced through the cervical os, the cavity width was obtained. The width as well as the length was entered into the NovaSure device. The cavity assessment was performed. This was followed by endometrial ablation for 58 seconds. NovaSure was then removed and inspected with mesh intact. Hysteroscope was then readvanced through the cervical os and the endometrial cavity was inspected showing desiccation of the endometrium. Instruments were then removed. A Hulka tenaculum was then advanced, single tooth tenaculum was removed. Speculum was then removed. Luna catheter was previously placed and set to gravity. Gloves were changed and attention was turned to the abdomen where 0.25% Marcaine was infused in the umbilical region. This area was incised and a 5 mm trocar and sleeve was advanced through this incision. A pneumoperitoneum was then obtained with CO2 gas. Two additional port sites placed to the left and right side of the umbilicus. The right side was infused with 0.25% Marcaine, an incision was made in this area, and an 8 mm trocar and sleeve was advanced through this incision. On the left side, 0.25% Marcaine was infused, incision was made in this area and a 5 mm trocar and sleeve was advanced through this incision. Next, the abdomen was then surveyed with the above-noted findings. Next, bilateral salpingectomies were then performed using the Harmonic Leonel scalpel device. The right fallopian tube was placed on traction, was dissected along the mesosalpinx and was transected at the level of the uterus. The specimen was then removed and in a similar fashion left fallopian tube was placed on traction, was dissected along the mesosalpinx, and transected at the level of the uterus and the specimen was removed. Hemostasis was noted. The pneumoperitoneum was then released. Instruments were removed from the patient's abdomen. Trocars were removed. The skin incisions were all closed with #4-0 Monocryl and dressed with DERMABOND. The Hulka tenaculum was removed as well as Luna catheter. The patient was then awakened from general anesthesia and taken to recovery in stable condition. Counts were correct.
[2018-09-28 10:45] VITALS: BP 131/70
[2018-09-28] MEDS ORDERED: OXYC1TAB23 PO (10:51)
[2018-09-28] MEDS ORDERED: KETOROLAC 30 MG/ML VIAL (J1885) IV SCH (15:00)
== END 2018-09-28 10:57 | disposition home or self-care (01) ==
LOC: M SDC 05:42
PROVIDERS: ATTEND Obstetrics & Gynecology
DX: N92.6 Irregular menstruation, unspecified (principal); Z30.2 Encounter for sterilization; E78.5 Hyperlipidemia, unspecified; E10.9 Type 1 diabetes mellitus without complications; Z79.4 Long term (current) use of insulin; Z79.899 Other long term (current) drug therapy; D64.9 Anemia, unspecified
CPT/HCPCS: 36415; 58563; 58661; 84703; 85027; 86850; 86900; 86901; 88302; 88305; J0131; J1100; J1885; J2250; J2370; J2405; J2710; J3010

== ENCOUNTER → 2018-10-03 | Outpatient (REF) | payer BC ==
[2018-10-03 12:13] LABS: BASO % 0.3 % (0.0-1.0); EOS # 0.1 10^3/uL (0.0-0.50); EOS % 1.4 % (0.0-3.0); HEMATOCRIT 33.6 % (36.0-47.0); HEMOGLOBIN 10.2 g/dl (12.0-15.5); LYMPH # 1.4 10^3/uL (1.5-4.5); LYMPH % 21.7 % (24.0-44.0); MEAN CORPUSCULAR HEMOGLOBIN 25.4 pg (27.0-33.0); MEAN CORPUSCULAR HGB CONC 30.4 g/dl (32.0-36.5); MEAN CORPUSCULAR VOLUME 83.8 fl (80.0-96.0); MONO # 0.4 10^3/uL (0.0-0.8); MONO % 6.1 % (0.0-5.0); NEUTROPHILS # 4.4 10^3/uL (1.8-7.7); NEUTROPHILS % 70.2 % (36.0-66.0); PLATELET COUNT, AUTOMATED 195 10^3/uL (150-450); RED BLOOD COUNT 4.01 10^6/uL (4.00-5.40); WHITE BLOOD COUNT 6.2 10^3/uL (4.0-10.0)
[2018-10-03 12:21] LABS: ALT/SGPT 21 U/L (12-78); BILIRUBIN,TOTAL 0.2 MG/DL (0.2-1.0); BLOOD UREA NITROGEN 11 MG/DL (7-18); CALCIUM LEVEL 9.1 MG/DL (8.5-10.1); CARBON DIOXIDE LEVEL 29 MEQ/L (21-32); CHLORIDE LEVEL 108 MEQ/L (98-107); CHOLESTEROL LEVEL 121 MG/DL (<200); CHOLESTEROL RISK RATIO 4.321 (<5); CREATININE FOR GFR 0.72 MG/DL (0.55-1.30); GLOMERULAR FILTRATION RATE > 60.0 (>58); GLUCOSE, FASTING 144 MG/DL (70-100); HDL CHOLESTEROL 28 MG/DL (>40); LDL CHOLESTEROL 35 MG/DL (<100); NON-HDL-C 93 MG/DL; POTASSIUM SERUM 4.5 MEQ/L (3.5-5.1); SODIUM LEVEL 141 MEQ/L (136-145); TOTAL PROTEIN 6.1 GM/DL (6.4-8.2); TRIGLYCERIDES LEVEL 291 MG/DL (<150)
[2018-10-03 12:31] LABS: HEMOGLOBIN A1c 7.7 %
[2018-10-04 08:35] LABS: LDL DIRECT 66 mg/dL (0-99)
== END ==
LOC: M SFHCLERA 08:29
PROVIDERS: ATTEND Family Medicine
DX: E11.65 Type 2 diabetes mellitus with hyperglycemia (principal); E78.5 Hyperlipidemia, unspecified

== ENCOUNTER 2018-11-15 13:55 | Emergency (ER) | payer BC, OTHER ==
[~2018-11-15] VITALS: Ht 167.6 cm; Wt 126.1 kg
[2018-11-15] MEDS ORDERED: RABIES IMMUNE GLOBULIN 1500 INTERNATIONAL UNIT/5ML VIAL (90375) IM ONE (14:45)
[2018-11-15] MEDS ORDERED: RABIES VACCINE HUMAN 2.5 INTERNATIONAL UNITS/ML VIAL (90675) IM ONE (14:45)
[2018-11-15 15:46] VITALS: BP 115/72
== END 2018-11-15 15:58 | disposition home or self-care (01) ==
LOC: M ED 13:55
DX: Z20.3 Contact with and (suspected) exposure to rabies (principal); Z23 Encounter for immunization; E11.9 Type 2 diabetes mellitus without complications; Z79.899 Other long term (current) drug therapy; Z79.4 Long term (current) use of insulin

== ENCOUNTER 2018-11-18 12:11 | Emergency (ER) | payer BC, OTHER ==
[~2018-11-18] VITALS: Ht 167.6 cm; Wt 128.2 kg
[2018-11-18 12:11] VITALS: BP 115/73
[2018-11-18] MEDS ORDERED: RABIES VACCINE HUMAN 2.5 INTERNATIONAL UNITS/ML VIAL (90675) IM ONE (12:30)
== END 2018-11-18 13:14 | disposition home or self-care (01) ==
LOC: M ED 12:11
DX: Z20.3 Contact with and (suspected) exposure to rabies (principal); Z23 Encounter for immunization; E11.9 Type 2 diabetes mellitus without complications; E78.5 Hyperlipidemia, unspecified; Z79.4 Long term (current) use of insulin; Z79.899 Other long term (current) drug therapy

== ENCOUNTER 2018-11-22 13:25 | Emergency (ER) | payer BC, OTHER ==
[~2018-11-22] VITALS: Ht 167.6 cm; Wt 127.0 kg
[2018-11-22] MEDS ORDERED: RABIES VACCINE HUMAN 2.5 INTERNATIONAL UNITS/ML VIAL (90675) IM ONE (14:15)
[2018-11-22 14:52] VITALS: BP 133/74
== END 2018-11-22 14:55 | disposition home or self-care (01) ==
LOC: M ED 13:25
DX: Z20.3 Contact with and (suspected) exposure to rabies (principal); Z23 Encounter for immunization

== ENCOUNTER 2018-11-29 11:14 | Emergency (ER) | payer BC, OTHER ==
[~2018-11-29] VITALS: Ht 167.6 cm; Wt 131.8 kg
[2018-11-29 11:15] VITALS: BP 129/86
[2018-11-29] MEDS ORDERED: RABIES VACCINE HUMAN 2.5 INTERNATIONAL UNITS/ML VIAL (90675) IM ONE (11:45)
== END 2018-11-29 12:31 | disposition home or self-care (01) ==
LOC: M ED 11:14
DX: Z20.3 Contact with and (suspected) exposure to rabies (principal); Z23 Encounter for immunization; E78.49 Other hyperlipidemia; E10.9 Type 1 diabetes mellitus without complications; Z79.4 Long term (current) use of insulin; Z79.899 Other long term (current) drug therapy

== ENCOUNTER → 2020-07-31 | Outpatient (CLI) | payer BC, OTHER ==
[~2020-07-31] MED LIST changes: +FERR324T21 PO; -FERR325T16 PO; -LISI2.5T76 PO; +LISI2.5T8 PO
[2020-07-31 16:37] LABS: BASO % 0.6 % (0.0-1.0); EOS # 0.1 10^3/uL (0.0-0.5); EOS % 1.2 % (0.0-3.0); HEMATOCRIT 44.8 % (36.0-47.0); LYMPH # 1.5 10^3/uL (1.5-5.0); LYMPH % 29.5 % (24.0-44.0); MEAN CORPUSCULAR HEMOGLOBIN 28.5 pg (27.0-33.0); MEAN CORPUSCULAR HGB CONC 33.5 g/dl (32.0-36.5); MONO # 0.3 10^3/uL (0.0-0.8); MONO % 5.1 % (2.0-8.0); NEUTROPHILS # 3.2 10^3/uL (1.5-8.5); PLATELET COUNT, AUTOMATED 142 10^3/uL (150-450); RED BLOOD COUNT 5.27 10^6/uL (4.00-5.40); WHITE BLOOD COUNT 5.1 10^3/uL (4.0-10.0)
[2020-07-31 17:11] LABS: CREATININE, URINE 27.4 MG/DL; MALB URINE SIEMENS 7.6 MG/L; MAU/CREAT RATIO 27.7 MCG/MG (0.0-30.0)
[2020-07-31 17:25] LABS: ALBUMIN 3.6 GM/DL (3.2-5.2); ALT/SGPT 54 U/L (12-78); BILIRUBIN,TOTAL 0.4 MG/DL (0.2-1.0); BLOOD UREA NITROGEN 16 MG/DL (7-18); CALCIUM LEVEL 9.4 MG/DL (8.5-10.1); CARBON DIOXIDE LEVEL 27 MEQ/L (21-32); CHLORIDE LEVEL 99 MEQ/L (98-107); CHOLESTEROL LEVEL 227 MG/DL (<200); CHOLESTEROL RISK RATIO 9.458 (<5); CREATININE FOR GFR 0.76 MG/DL (0.55-1.30); GLOMERULAR FILTRATION RATE > 60.0 (>58); GLUCOSE, FASTING 540 MG/DL (70-100); HDL CHOLESTEROL 24 MG/DL (>40); NON-HDL-C 203 MG/DL; POTASSIUM SERUM 4.4 MEQ/L (3.5-5.1); SODIUM LEVEL 132 MEQ/L (136-145); TOTAL PROTEIN 6.8 GM/DL (6.4-8.2); TRIGLYCERIDES LEVEL 975 MG/DL (<150)
[2020-07-31 18:17] LABS: HEMOGLOBIN A1c 11.6 %
== END ==
LOC: M WUC 11:26
PROVIDERS: ATTEND Family Medicine
DX: E11.65 Type 2 diabetes mellitus with hyperglycemia (principal); E78.1 Pure hyperglyceridemia

== ENCOUNTER → 2020-08-19 | Outpatient (CLI) | payer BC, OTHER ==
[2020-08-19 11:26] LABS: ALBUMIN 3.5 GM/DL (3.2-5.2); ALT/SGPT 40 U/L (12-78); BILIRUBIN,TOTAL 0.5 MG/DL (0.2-1.0); BLOOD UREA NITROGEN 15 MG/DL (7-18); CALCIUM LEVEL 8.5 MG/DL (8.5-10.1); CARBON DIOXIDE LEVEL 26 MEQ/L (21-32); CHLORIDE LEVEL 104 MEQ/L (98-107); CHOLESTEROL LEVEL 212 MG/DL (<200); CHOLESTEROL RISK RATIO 6.838 (<5); CREATININE FOR GFR 0.79 MG/DL (0.55-1.30); GLOMERULAR FILTRATION RATE > 60.0 (>58); GLUCOSE, FASTING 272 MG/DL (70-100); HDL CHOLESTEROL 31 MG/DL (>40); LDL CHOLESTEROL 134 MG/DL (<100); NON-HDL-C 181 MG/DL; POTASSIUM SERUM 4.5 MEQ/L (3.5-5.1); SODIUM LEVEL 136 MEQ/L (136-145); TOTAL PROTEIN 6.5 GM/DL (6.4-8.2); TRIGLYCERIDES LEVEL 236 MG/DL (<150)
== END ==
LOC: M WUC 08:05
PROVIDERS: ATTEND Family Medicine
DX: E11.65 Type 2 diabetes mellitus with hyperglycemia (principal); E78.1 Pure hyperglyceridemia

== ENCOUNTER → 2021-01-27 | Outpatient (CLI) | payer BC, OTHER ==
[~2021-01-27] MED LIST changes: -IBUP200T45 PO; +IBUP200T46 PO
[2021-01-27 13:51] LABS: HEMOGLOBIN A1c 11.6 %
[2021-01-27 14:10] LABS: ALBUMIN 3.5 GM/DL (3.2-5.2); ALT/SGPT 51 U/L (12-78); BILIRUBIN,TOTAL 0.4 MG/DL (0.2-1.0); BLOOD UREA NITROGEN 11 MG/DL (7-18); CALCIUM LEVEL 8.8 MG/DL (8.5-10.1); CARBON DIOXIDE LEVEL 28 MEQ/L (21-32); CHLORIDE LEVEL 102 MEQ/L (98-107); CHOLESTEROL LEVEL 184 MG/DL (<200); CHOLESTEROL RISK RATIO 6.344 (<5); CREATININE FOR GFR 0.78 MG/DL (0.55-1.30); GLOMERULAR FILTRATION RATE > 60.0 (>58); GLUCOSE, FASTING 290 MG/DL (70-100); HDL CHOLESTEROL 29 MG/DL (>40); NON-HDL-C 155 MG/DL; SODIUM LEVEL 135 MEQ/L (136-145); TOTAL PROTEIN 6.8 GM/DL (6.4-8.2); TRIGLYCERIDES LEVEL 502 MG/DL (<150)
== END ==
LOC: M WUC 08:54
PROVIDERS: ATTEND Family Medicine
DX: E11.65 Type 2 diabetes mellitus with hyperglycemia (principal); E78.1 Pure hyperglyceridemia

== ENCOUNTER → 2023-04-19 | Outpatient (REF) | payer BC ==
[~2023-04-19] MED LIST changes: -MICR1TAB18 PO; +NORE1TAB94 PO
== END ==
LOC: M LAB REF 19:31
PROVIDERS: ATTEND Student in an Organized Health Care Education/Training Program
DX: R30.0 Dysuria (principal)

== ENCOUNTER → 2023-11-01 | Outpatient (REF) | payer BC ==
[2023-11-01 13:29] LABS: BASO % 0.4 % (0.0-1.0); EOS # 0.1 10^3/uL (0.0-0.5); EOS % 1.8 % (0.0-3.0); HEMOGLOBIN 15.2 g/dl (12.0-15.5); LYMPH # 1.8 10^3/uL (1.5-5.0); LYMPH % 25.3 % (24.0-44.0); MEAN CORPUSCULAR HEMOGLOBIN 28.6 pg (27.0-33.0); MEAN CORPUSCULAR HGB CONC 33.8 g/dl (32.0-36.5); MEAN CORPUSCULAR VOLUME 84.7 fl (80.0-96.0); MONO # 0.3 10^3/uL (0.0-0.8); MONO % 4.6 % (2.0-8.0); NEUTROPHILS # 4.8 10^3/uL (1.5-8.5); NEUTROPHILS % 67.3 % (36.0-66.0); PLATELET COUNT, AUTOMATED 165 10^3/uL (150-450); RED BLOOD COUNT 5.31 10^6/uL (4.00-5.40); WHITE BLOOD COUNT 7.1 10^3/uL (4.0-10.0)
[2023-11-01 14:00] LABS: CREATININE, URINE 82.8 MG/DL
[2023-11-01 14:01] LABS: FREE T4 0.91 NG/DL (0.89-1.76); HEMOGLOBIN A1c 12.4 % (4.0-6.0)
[2023-11-01 14:02] LABS: MAU/CREAT RATIO 13.2 MCG/MG (0.0-30.0); THYROID STIMULATING HORMONE 1.991 uIU/ML (0.55-4.78)
[2023-11-01 17:00] LABS: ALBUMIN 3.7 G/DL (3.2-5.2); ALKALINE PHOSPHATASE 70 U/L (46-116); ALT/SGPT 27 U/L (7.0-40); AST/SGOT < 8 U/L (<34); BILIRUBIN,TOTAL 0.4 MG/DL (0.3-1.2); BLOOD UREA NITROGEN 15 MG/DL (9-23); CALCIUM LEVEL 9.2 MG/DL (8.5-10.1); CARBON DIOXIDE LEVEL 27 MMOL/L (20-31); CHLORIDE LEVEL 102 MMOL/L (98-107); CHOLESTEROL LEVEL 230 MG/DL (<200); CHOLESTEROL RISK RATIO 6.51 (<5); CREATININE FOR GFR 0.56 MG/DL (0.55-1.30); GLOMERULAR FILTRATION RATE > 60.0 (>58); GLUCOSE, FASTING 300 MG/DL (60-100); HDL CHOLESTEROL 35.3 MG/DL (>40); LDL CHOLESTEROL 132.7 MG/DL (<100); NON-HDL-C 194.7 MG/DL; POTASSIUM SERUM 5.2 MMOL/L (3.5-5.1); SODIUM LEVEL 135 MMOL/L (136-145); TRIGLYCERIDES LEVEL 310 MG/DL (<150)
== END ==
LOC: M SFHCLERA 07:36
PROVIDERS: ATTEND Family Medicine
DX: Z00.00 Encounter for general adult medical examination without abnormal findings (principal); E11.65 Type 2 diabetes mellitus with hyperglycemia; E78.1 Pure hyperglyceridemia; Z86.39 Personal history of other endocrine, nutritional and metabolic disease

== ENCOUNTER 2024-05-14 06:34 | Inpatient (IN) | payer BC ==
[~2024-05-14] VITALS: Ht 167.6 cm; Wt 125.1 kg
[2024-05-14] MEDS ORDERED: DOXY100T PO (06:39)
[2024-05-14 09:45] LABS: BASO # 0.1 10^3/uL (0.0-0.2); BASO % 0.4 % (0.0-1.0); EOS % 0.3 % (0.0-3.0); HEMATOCRIT 47.4 % (36.0-47.0); HEMOGLOBIN 16.3 g/dl (12.0-15.5); LYMPH # 0.8 10^3/uL (1.5-5.0); LYMPH % 6.7 % (24.0-44.0); MEAN CORPUSCULAR HEMOGLOBIN 28.4 pg (27.0-33.0); MEAN CORPUSCULAR HGB CONC 34.4 g/dl (32.0-36.5); MEAN CORPUSCULAR VOLUME 82.6 fl (80.0-96.0); MONO # 0.4 10^3/uL (0.0-0.8); MONO % 3.8 % (2.0-8.0); NEUTROPHILS # 10.3 10^3/uL (1.5-8.5); NEUTROPHILS % 88.2 % (36.0-66.0); PLATELET COUNT, AUTOMATED 259 10^3/uL (150-450); RED BLOOD COUNT 5.74 10^6/uL (4.00-5.40); WHITE BLOOD COUNT 11.7 10^3/uL (4.0-10.0)
[2024-05-14 10:05] LABS: ALBUMIN 3.5 G/DL (3.2-5.2); ALKALINE PHOSPHATASE 119 U/L (35-104); ALT/SGPT 23 U/L (7.0-40); AST/SGOT 16 U/L (<34); BILIRUBIN,DIRECT 0.1 MG/DL (<0.4); BILIRUBIN,TOTAL 0.5 MG/DL (0.3-1.2); BLOOD UREA NITROGEN 17 MG/DL (9-23); CALCIUM LEVEL 10.6 MG/DL (8.5-10.1); CARBON DIOXIDE LEVEL 24 MMOL/L (20-31); CHLORIDE LEVEL 100 MMOL/L (98-107); CREATININE FOR GFR 0.76 MG/DL (0.55-1.30); GLOMERULAR FILTRATION RATE > 60.0 (>58); GLUCOSE, FASTING 185 MG/DL (60-100); POTASSIUM SERUM 3.3 MMOL/L (3.5-5.1); SODIUM LEVEL 138 MMOL/L (136-145); TOTAL PROTEIN 8.4 G/DL (5.7-8.2)
[2024-05-14] MEDS: PIPERACILLIN/TAZOBACTAM SOD 4.5 GM in DEXTROSE 5% (D5W) ADV/MINI-BAG 50 ML IV ONE (12:10)
[2024-05-14] MEDS: NS (Normal Saline) 0.9% 1,000 ML IV ONE ×2 (12:10→17:09)
[2024-05-14] MEDS ORDERED: ISOVUE-370 76% 100ML VIAL As Ordered ONE (12:33)
[2024-05-14] MEDS: POTASSIUM CHLORIDE 10MEQ SR TABLET PO ONE ×2 (12:59→16:24)
[2024-05-14] MEDS: VANCOMYCIN HCL 2,000 MG, VIAL MATE ADAPTER 1 EACH in NS 500 ML IV ONE (12:59)
[2024-05-14] MEDS ORDERED: KCL 10MEQ/100ML SWI (KRUN) 10 MEQ in IV 1 EA IV ONE (13:20)
[2024-05-14] MEDS ORDERED: MIDAZOLAM INJ 2MG/2ML VIAL As Ordered ONE (13:30)
[2024-05-14] MEDS ORDERED: fentaNYL 100 MCG/2 ML INJECTION As Ordered ONE (13:30)
[2024-05-14] MEDS ORDERED: ONDANSETRON 4MG 2ML VIAL As Ordered ONE (13:32)
[2024-05-14] MEDS ORDERED: propofoL 200 MG/20 ML VIAL As Ordered ONE (13:32)
[2024-05-14] MEDS ORDERED: LIDOCAINE 2% 100MG/5ML SDV (FOR ANES.) As Ordered ONE (13:32)
[2024-05-14] MEDS: ONDANSETRON 4MG 2ML VIAL IV ONE (13:35)
[2024-05-14] MEDS ORDERED: dexmedeTOMIDine (4MCG/ML)200MCG/50ML BTL (PRECEDEX) As Ordered ONE (13:35)
[2024-05-14] MEDS ORDERED: ROCURONIUM BROMIDE 50MG/5ML VIAL As Ordered ONE (13:50)
[2024-05-14] MEDS ORDERED: METOCLOPRAMIDE INJ 10MG/2ML VIAL As Ordered ONE (13:51)
[2024-05-14] MEDS: CLINDAMYCIN 600 MG in IV 1 EA IV STA (13:51)
[2024-05-14] MEDS ORDERED: ACETAMINOPHEN 325 MG TAB PO PRN (13:55)
[2024-05-14] MEDS ORDERED: MOM 30ML SUSPENSION UDC PO PRN ×2 (13:55→14:15)
[2024-05-14] MEDS ORDERED: PIPERACILLIN/TAZOBACTAM SOD 4.5 GM in DEXTROSE 5% (D5W) ADV/MINI-BAG 50 ML IV SCH (13:55)
[2024-05-14] MEDS ORDERED: SODIUM CHLORIDE 0.9% 1000 ML IV SCH (13:55)
[2024-05-14] MEDS ORDERED: MAALOX 30 ML SUSP *UDC PO PRN ×2 (13:55→14:15)
[2024-05-14] MEDS: KCL 10MEQ/100ML SWI (KRUN) 10 MEQ in IV 1 EA IV SCH (14:00)
[2024-05-14] MEDS ORDERED: INSULIN LISPRO (NovoLOG) PER UNIT SC SCH ×2 (14:05→18:00)
[2024-05-14] MEDS ORDERED: GLUCOSE 4 GM CHEW PO PRN ×2 (14:05→14:15)
[2024-05-14] MEDS ORDERED: GLUCAGON INJ 1MG VIAL SC PRN ×2 (14:05→14:15)
[2024-05-14] MEDS ORDERED: DEXTROSE 50% 50ML SYRINGE IV PRN ×2 (14:05→14:15)
[2024-05-14] MEDS ORDERED: HOME MED LIST COMPLETE! XX SCH (14:20)
[2024-05-14] MEDS ORDERED: ACETAMINOPHEN 1000MG/100ML IV BAG As Ordered ONE (14:24)
[2024-05-14] MEDS ORDERED: KETOROLAC 60MG 2ML VIAL As Ordered ONE (14:28)
[2024-05-14] MEDS ORDERED: SUGAMMADEX SODIUM 500 MG/5 ML VIAL (BRIDION) As Ordered ONE (14:28)
[2024-05-14 14:34] LABS: PROCALCITONIN 0.28 ng/ml
[2024-05-14 14:42] LABS: MAGNESIUM LEVEL 1.9 MG/DL (1.8-2.4)
[2024-05-14 14:45] LABS: C REACTIVE PROTEIN QUANTITATIV 34.69 MG/DL (<1.0)
[2024-05-14] MEDS ORDERED: ePHEDrine SULFATE 25 MG/5 ML(5MG/ML) SYRINGE As Ordered ONE (15:04)
[2024-05-14] MEDS ORDERED: PHENYLephrine 500MCG 5ML (100MCG/ML) SYRINGE As Ordered ONE (15:04)
[2024-05-14] MEDS ORDERED: MORPHINE 4 MG/ML 1ML VIAL IV PRN ×2 (15:25)
[2024-05-14] MEDS ORDERED: MORPHINE 2 MG/ML 1ML VIAL IV PRN (15:25)
[2024-05-14] MEDS ORDERED: NS (Normal Saline) 0.9% 1,000 ML IV SCH (15:30)
[2024-05-14] MEDS: SODIUM CHLORIDE 0.9% 1000 ML IV SCH (16:05)
[2024-05-14] MEDS: NS (Normal Saline) 0.9% 1,000 ML IV SCH (16:05)
[2024-05-14 16:22] VITALS: BP 94/53; TEMP 97.8; O2SAT 96
[2024-05-14] MEDS: INSULIN LISPRO (NovoLOG) PER UNIT SC SCH ×2 (17:11→21:00)
[2024-05-14 17:19] VITALS: BP 92/54
[2024-05-14] MEDS: PIPERACILLIN/TAZOBACTAM SOD 4.5 GM in DEXTROSE 5% (D5W) ADV/MINI-BAG 50 ML IV SCH (18:09)
[2024-05-14 18:17] VITALS: BP 92/62
[2024-05-14 18:52] VITALS: BP 91/52; TEMP 97.1; O2SAT 96
[2024-05-14 20:02] VITALS: BP 90/51; TEMP 98.6; O2SAT 94
[2024-05-14] MEDS: KETOROLAC 30 MG/ML 1ML VIAL IV SCH (21:01)
[2024-05-14] MEDS: VANCOMYCIN HCL 1,000 MG, VIAL MATE ADAPTER 1 EACH in NS 250 ML IV SCH (21:01)
[2024-05-14 23:44] VITALS: BP 94/53; TEMP 97.3; O2SAT 99
[2024-05-15 03:56] VITALS: BP 99/59; TEMP 98.3; O2SAT 96
[2024-05-15 07:01] LABS: BASO % 0.4 % (0.0-1.0); EOS # 0.1 10^3/uL (0.0-0.5); EOS % 0.8 % (0.0-3.0); LYMPH # 1.2 10^3/uL (1.5-5.0); LYMPH % 15.2 % (24.0-44.0); MEAN CORPUSCULAR HEMOGLOBIN 27.6 pg (27.0-33.0); MEAN CORPUSCULAR HGB CONC 32.7 g/dl (32.0-36.5); MEAN CORPUSCULAR VOLUME 84.5 fl (80.0-96.0); MONO # 0.5 10^3/uL (0.0-0.8); MONO % 6.8 % (2.0-8.0); PLATELET COUNT, AUTOMATED 192 10^3/uL (150-450); RED BLOOD COUNT 4.31 10^6/uL (4.00-5.40); WHITE BLOOD COUNT 7.9 10^3/uL (4.0-10.0)
[2024-05-15 07:13] LABS: HEMOGLOBIN 11.9 g/dl (12.0-15.5)
[2024-05-15 07:14] LABS: HEMATOCRIT 36.4 % (36.0-47.0)
[2024-05-15 07:44] LABS: BLOOD UREA NITROGEN 13 MG/DL (9-23); C REACTIVE PROTEIN QUANTITATIV 24.16 MG/DL (<1.0); CALCIUM LEVEL 7.6 MG/DL (8.5-10.1); CARBON DIOXIDE LEVEL 21 MMOL/L (20-31); CHLORIDE LEVEL 104 MMOL/L (98-107); CREATININE FOR GFR 0.64 MG/DL (0.55-1.30); GLOMERULAR FILTRATION RATE > 60.0 (>58); GLUCOSE, FASTING 335 MG/DL (60-100); MAGNESIUM LEVEL 1.6 MG/DL (1.8-2.4); POTASSIUM SERUM 3.5 MMOL/L (3.5-5.1); SODIUM LEVEL 136 MMOL/L (136-145)
[2024-05-15 08:00] VITALS: BP 99/54; TEMP 96.8; O2SAT 97
[2024-05-15 12:00] VITALS: BP 105/55; TEMP 97.1; O2SAT 98
[2024-05-15] MEDS: VANCOMYCIN HCL 1,250 MG, VIAL MATE ADAPTER 1 EACH in NS 250 ML IV SCH (14:02)
[2024-05-15 16:00] VITALS: BP 130/66; TEMP 96.9; O2SAT 98
[2024-05-15 16:37] LABS: HEMOGLOBIN A1c 12.2 % (4.0-6.0)
[2024-05-15] MEDS: HumuLIN R (REGULAR) INSULIN (NovoLIN R) **100U/ML** PER UNIT IV STA (18:22)
[2024-05-15] MEDS: HumuLIN N INSULIN (NovoLIN N) PER UNIT SC SCH (18:22)
[2024-05-15 20:03] VITALS: BP 130/67; TEMP 97; O2SAT 99
[2024-05-15] MEDS: LINEZOLID 600MG TABLET (ZYVOX) PO SCH (20:14)
[2024-05-15] MEDS ORDERED: HumuLIN N INSULIN (NovoLIN N) PER UNIT SC SCH (21:00)
[2024-05-16 03:40] VITALS: BP 127/69; TEMP 97; O2SAT 97
[2024-05-16 06:39] LABS: BASO % 0.6 % (0.0-1.0); EOS # 0.1 10^3/uL (0.0-0.5); EOS % 1.3 % (0.0-3.0); HEMATOCRIT 33.6 % (36.0-47.0); HEMOGLOBIN 11.1 g/dl (12.0-15.5); LYMPH # 1.2 10^3/uL (1.5-5.0); LYMPH % 22.7 % (24.0-44.0); MEAN CORPUSCULAR HEMOGLOBIN 27.9 pg (27.0-33.0); MEAN CORPUSCULAR VOLUME 84.4 fl (80.0-96.0); MONO # 0.3 10^3/uL (0.0-0.8); MONO % 5.5 % (2.0-8.0); NEUTROPHILS # 3.7 10^3/uL (1.5-8.5); NEUTROPHILS % 68.6 % (36.0-66.0); PLATELET COUNT, AUTOMATED 198 10^3/uL (150-450); RED BLOOD COUNT 3.98 10^6/uL (4.00-5.40); WHITE BLOOD COUNT 5.4 10^3/uL (4.0-10.0)
[2024-05-16 06:56] LABS: BLOOD UREA NITROGEN 10 MG/DL (9-23); C REACTIVE PROTEIN QUANTITATIV 16.23 MG/DL (<1.0); CALCIUM LEVEL 7.7 MG/DL (8.5-10.1); CARBON DIOXIDE LEVEL 25 MMOL/L (20-31); CHLORIDE LEVEL 104 MMOL/L (98-107); CHOLESTEROL LEVEL 162 MG/DL (<200); CHOLESTEROL RISK RATIO 7.67 (<5); CREATININE FOR GFR 0.64 MG/DL (0.55-1.30); GLOMERULAR FILTRATION RATE > 60.0 (>58); GLUCOSE, FASTING 334 MG/DL (60-100); HDL CHOLESTEROL 21.1 MG/DL (>40); LDL CHOLESTEROL 103.7 MG/DL (<100); MAGNESIUM LEVEL 1.7 MG/DL (1.8-2.4); NON-HDL-C 140.9 MG/DL; POTASSIUM SERUM 4.1 MMOL/L (3.5-5.1); SODIUM LEVEL 137 MMOL/L (136-145); TRIGLYCERIDES LEVEL 186 MG/DL (<150)
[2024-05-16] MEDS ORDERED: HumuLIN N INSULIN (NovoLIN N) PER UNIT SC SCH (08:00)
[2024-05-16] MEDS: INSULIN LISPRO (NovoLOG) PER UNIT SC SCH ×2 (08:05→17:45)
[2024-05-16] MEDS: LEVEMIR (INSULIN DETEMIR) 1 UNITS/0.01ML SC SCH ×2 (08:12→20:37)
[2024-05-16] MEDS: MAG SULF 1GM/100ML (MAG RUN) 1 GM in IV 1 EA IV ONE (10:24)
[2024-05-16 12:19] VITALS: BP 111/76; TEMP 96.7; O2SAT 97
[2024-05-16] MEDS: ATORVASTATIN 20 MG TAB PO SCH (12:51)
[2024-05-16] MEDS: metFORMIN (GLUCOPHAGE) 500MG TAB PO SCH (17:33)
[2024-05-16 18:19] VITALS: BP 158/91
[2024-05-16] MEDS: ENOXAPARIN 40MG/0.4ML SYRINGE (J1650 PER 10MG) SC SCH (20:36)
[2024-05-16 20:53] VITALS: BP 145/85; TEMP 97.3; O2SAT 97
[2024-05-17] MEDS: ACETAMINOPHEN 325 MG TAB PO PRN (00:47)
[2024-05-17 01:01] LABS: KETONE, URINE AUTO RFX NEGATIVE (NEGATIVE); MUCUS, URINE RFX SMALL (NEGATIVE); NITRITE, URINE AUTO RFX NEGATIVE (NEGATIVE); RBC, URINE AUTO RFX 2 /HPF (0-3); SQUAM EPITHELIAL CELL UR AURFX 5 /HPF (0-6); WBC, URINE AUTO RFX 5 /HPF (0-3)
[2024-05-17 01:02] LABS: LEUKOCYTE ESTERASE UR AUTO RFX 2+ (NEGATIVE)
[2024-05-17 04:00] VITALS: BP 120/81; TEMP 97.2; O2SAT 94
[2024-05-17 05:48] LABS: BASO % 0.6 % (0.0-1.0); EOS # 0.1 10^3/uL (0.0-0.5); EOS % 1.3 % (0.0-3.0); HEMATOCRIT 33.4 % (36.0-47.0); LYMPH # 1.5 10^3/uL (1.5-5.0); LYMPH % 27.9 % (24.0-44.0); MEAN CORPUSCULAR HEMOGLOBIN 27.9 pg (27.0-33.0); MEAN CORPUSCULAR HGB CONC 32.9 g/dl (32.0-36.5); MEAN CORPUSCULAR VOLUME 84.8 fl (80.0-96.0); MONO # 0.4 10^3/uL (0.0-0.8); MONO % 6.9 % (2.0-8.0); NEUTROPHILS # 3.3 10^3/uL (1.5-8.5); NEUTROPHILS % 61.1 % (36.0-66.0); PLATELET COUNT, AUTOMATED 219 10^3/uL (150-450); RED BLOOD COUNT 3.94 10^6/uL (4.00-5.40); WHITE BLOOD COUNT 5.4 10^3/uL (4.0-10.0)
[2024-05-17 06:03] LABS: BLOOD UREA NITROGEN 6 MG/DL (9-23); C REACTIVE PROTEIN QUANTITATIV 8.44 MG/DL (<1.0); CALCIUM LEVEL 8.5 MG/DL (8.5-10.1); CARBON DIOXIDE LEVEL 26 MMOL/L (20-31); CHLORIDE LEVEL 105 MMOL/L (98-107); CREATININE FOR GFR 0.62 MG/DL (0.55-1.30); GLOMERULAR FILTRATION RATE > 60.0 (>58); GLUCOSE, FASTING 279 MG/DL (60-100); MAGNESIUM LEVEL 1.8 MG/DL (1.8-2.4); POTASSIUM SERUM 3.9 MMOL/L (3.5-5.1); SODIUM LEVEL 138 MMOL/L (136-145)
[2024-05-17 10:15] VITALS: BP 119/81; TEMP 97.2
[2024-05-17 12:00] VITALS: BP 119/79; TEMP 97.2; O2SAT 96
[2024-05-17] MEDS: FLUCONAZOLE 50MG TABLET PO ONE (14:03)
[2024-05-17 15:21] VITALS: BP 121/81; TEMP 97.5; O2SAT 97
[2024-05-17 20:08] VITALS: BP 133/84; TEMP 97.7; O2SAT 100
[2024-05-18 04:37] VITALS: BP 135/86; TEMP 97.5; O2SAT 99
[2024-05-18 05:49] LABS: BASO % 0.4 % (0.0-1.0); EOS # 0.1 10^3/uL (0.0-0.5); EOS % 1.5 % (0.0-3.0); HEMATOCRIT 35.1 % (36.0-47.0); HEMOGLOBIN 11.4 g/dl (12.0-15.5); LYMPH # 1.4 10^3/uL (1.5-5.0); MEAN CORPUSCULAR HEMOGLOBIN 27.7 pg (27.0-33.0); MEAN CORPUSCULAR HGB CONC 32.5 g/dl (32.0-36.5); MEAN CORPUSCULAR VOLUME 85.4 fl (80.0-96.0); MONO # 0.3 10^3/uL (0.0-0.8); MONO % 6.3 % (2.0-8.0); NEUTROPHILS # 3.4 10^3/uL (1.5-8.5); NEUTROPHILS % 63.3 % (36.0-66.0); PLATELET COUNT, AUTOMATED 239 10^3/uL (150-450); RED BLOOD COUNT 4.11 10^6/uL (4.00-5.40); WHITE BLOOD COUNT 5.4 10^3/uL (4.0-10.0)
[2024-05-18 06:10] LABS: C REACTIVE PROTEIN QUANTITATIV 4.95 MG/DL (<1.0)
[2024-05-18 06:12] LABS: BLOOD UREA NITROGEN < 5 MG/DL (9-23); CALCIUM LEVEL 8.5 MG/DL (8.5-10.1); CARBON DIOXIDE LEVEL 28 MMOL/L (20-31); CHLORIDE LEVEL 102 MMOL/L (98-107); CREATININE FOR GFR 0.65 MG/DL (0.55-1.30); GLOMERULAR FILTRATION RATE > 60.0 (>58); GLUCOSE, FASTING 216 MG/DL (60-100); MAGNESIUM LEVEL 1.6 MG/DL (1.8-2.4); POTASSIUM SERUM 3.8 MMOL/L (3.5-5.1); SODIUM LEVEL 141 MMOL/L (136-145)
[2024-05-18] MEDS: MAG SULF 1GM/100ML (MAG RUN) 1 GM in IV 1 EA IV SCH (11:03)
[2024-05-18 12:00] VITALS: BP 141/94; TEMP 97.3; O2SAT 96
[2024-05-18] MEDS: metroNIDAZOLE (FLAGYL) 500MG TABLET PO SCH (17:15)
[2024-05-18] MEDS: INSULIN LISPRO (NovoLOG) PER UNIT SC SCH ×2 (17:18→17:20)
[2024-05-18 20:33] VITALS: BP 141/91; TEMP 97.3; O2SAT 96
[2024-05-18] MEDS: LEVEMIR (INSULIN DETEMIR) 1 UNITS/0.01ML SC SCH (20:44)
[2024-05-18] MEDS: BACTRIM 160MG/800MG DS TAB PO SCH (20:45)
[2024-05-19 04:05] VITALS: BP 142/90; TEMP 97.3; O2SAT 95
[2024-05-19 06:21] LABS: BASO % 0.6 % (0.0-1.0); EOS # 0.1 10^3/uL (0.0-0.5); EOS % 1.6 % (0.0-3.0); HEMATOCRIT 34.3 % (36.0-47.0); HEMOGLOBIN 11.3 g/dl (12.0-15.5); LYMPH # 1.7 10^3/uL (1.5-5.0); LYMPH % 26.7 % (24.0-44.0); MEAN CORPUSCULAR HEMOGLOBIN 28.1 pg (27.0-33.0); MEAN CORPUSCULAR HGB CONC 32.9 g/dl (32.0-36.5); MEAN CORPUSCULAR VOLUME 85.3 fl (80.0-96.0); MONO # 0.4 10^3/uL (0.0-0.8); MONO % 6.9 % (2.0-8.0); NEUTROPHILS # 3.8 10^3/uL (1.5-8.5); NEUTROPHILS % 60.7 % (36.0-66.0); PLATELET COUNT, AUTOMATED 229 10^3/uL (150-450); RED BLOOD COUNT 4.02 10^6/uL (4.00-5.40); WHITE BLOOD COUNT 6.2 10^3/uL (4.0-10.0)
[2024-05-19 06:36] LABS: C REACTIVE PROTEIN QUANTITATIV 3.05 MG/DL (<1.0)
[2024-05-19 06:43] LABS: BLOOD UREA NITROGEN < 5 MG/DL (9-23); CALCIUM LEVEL 8.7 MG/DL (8.5-10.1); CARBON DIOXIDE LEVEL 30 MMOL/L (20-31); CHLORIDE LEVEL 104 MMOL/L (98-107); CREATININE FOR GFR 0.71 MG/DL (0.55-1.30); GLOMERULAR FILTRATION RATE > 60.0 (>58); GLUCOSE, FASTING 214 MG/DL (60-100); MAGNESIUM LEVEL 1.8 MG/DL (1.8-2.4); POTASSIUM SERUM 4.4 MMOL/L (3.5-5.1); SODIUM LEVEL 142 MMOL/L (136-145)
[2024-05-19 08:00] VITALS: BP 138/74; TEMP 97.5; O2SAT 95
[2024-05-19] MEDS ORDERED: ATOR40TA75 PO (08:40)
[2024-05-19] MEDS ORDERED: BACTDSTA PO (08:40)
[2024-05-19] MEDS ORDERED: METR-265 PO (08:40)
[2024-05-19] MEDS ORDERED: METF500T13 PO ×2 (10:45→13:24)
[2024-05-19 12:00] VITALS: BP 136/86; TEMP 97.3; O2SAT 98
[2024-05-19] MEDS ORDERED: INSUR SC (13:24)
[2024-05-19] MEDS ORDERED: INSUN SC (13:24)
== END 2024-05-19 14:10 | disposition home health service (06) | DRG 710 ==
LOC: M ED 06:34 → M ED INP 13:53 → M ED 14:05 → M MS4PR 15:57 → M MSPAV 05-16 16:46
PROVIDERS: ADMIT Student in an Organized Health Care Education/Training Program; ATTEND Internal Medicine
PROC: 0MBK0ZZ Excision of Perineum Bursa and Ligament, Open Approach (ICD-10-PCS; principal; 2024-05-14 13:27)
DX: A41.9 Sepsis, unspecified organism (principal); L02.214 Cutaneous abscess of groin; M72.6 Necrotizing fasciitis; E11.42 Type 2 diabetes mellitus with diabetic polyneuropathy; E66.813 Obesity, class 3; Z68.41 Body mass index [BMI] 40.0-44.9, adult; E78.5 Hyperlipidemia, unspecified; E87.6 Hypokalemia; E11.65 Type 2 diabetes mellitus with hyperglycemia; E83.42 Hypomagnesemia; Z79.2 Long term (current) use of antibiotics; Z79.4 Long term (current) use of insulin

== ENCOUNTER → 2024-06-29 | Outpatient (REF) | payer BC ==
[~2024-06-29] MED LIST changes: +ATOR40TA75 PO; +BACTDSTA PO; +DOXY100T PO; +METF500T13 PO; +METR-265 PO
== END ==
LOC: M LAB REF 17:14
PROVIDERS: ATTEND Nurse Practitioner Family
DX: N76.4 Abscess of vulva (principal)

== ENCOUNTER → 2024-12-08 | Outpatient (CLI) | payer BC ==
[~2024-12-08] MED LIST changes: +NORE-23 PO; -NORE1TAB94 PO
== END ==
LOC: M WHC 15:03
PROVIDERS: ATTEND Family Medicine
DX: Z12.31 Encounter for screening mammogram for malignant neoplasm of breast (principal); R92.313 Mammographic fatty tissue density, bilateral breasts

== ENCOUNTER → 2024-12-21 | Outpatient (REF) | payer BC ==
[2024-12-21 17:41] LABS: CREATININE, URINE 51.8 MG/DL; MALB URINE SIEMENS < 3.0 MG/L
[2024-12-21 18:28] LABS: BASO # 0.0 10^3/uL (0.0-0.2); BASO % 0.3 % (0.0-1.0); EOS # 0.1 10^3/uL (0.0-0.5); EOS % 1.2 % (0.0-3.0); LYMPH # 2.5 10^3/uL (1.5-5.0); LYMPH % 31.8 % (24.0-44.0); MONO # 0.5 10^3/uL (0.0-0.8); MONO % 6.1 % (2.0-8.0); NEUTROPHILS # 4.6 10^3/uL (1.5-8.5); NEUTROPHILS % 60.1 % (36.0-66.0); PLATELET COUNT, AUTOMATED 213 10^3/uL (150-450)
[2024-12-21 18:29] LABS: ALT/SGPT 43 U/L (7.0-40); AST/SGOT 19 U/L (<34); CALCIUM LEVEL 9.6 MG/DL (8.5-10.1); CARBON DIOXIDE LEVEL 30 MMOL/L (20-31); CHLORIDE LEVEL 100 MMOL/L (98-107); CHOLESTEROL LEVEL 219 MG/DL (<200); CHOLESTEROL RISK RATIO 6.97 (<5); CREATININE FOR GFR 0.72 MG/DL (0.55-1.30); GLOMERULAR FILTRATION RATE > 90.0 (>58); NON-HDL-C 187.6 MG/DL; POTASSIUM SERUM 4.2 MMOL/L (3.5-5.1); SODIUM LEVEL 137 MMOL/L (136-145); TRIGLYCERIDES LEVEL 427 MG/DL (<150)
[2024-12-21 19:30] LABS: ESTIMATED AVERAGE GLUCOSE 263.0 MG/DL (60-110)
== END ==
LOC: M SFHCLERA 13:58
PROVIDERS: ATTEND Family Medicine
DX: Z01.818 Encounter for other preprocedural examination (principal); E11.65 Type 2 diabetes mellitus with hyperglycemia; E78.1 Pure hyperglyceridemia; E78.5 Hyperlipidemia, unspecified

== ENCOUNTER → 2025-02-06 | Outpatient (CLI) | payer BC ==
[2025-02-06 19:03] LABS: ALT/SGPT 34 U/L (7.0-40); AST/SGOT 23 U/L (<34); CALCIUM LEVEL 8.4 MG/DL (8.5-10.1); CARBON DIOXIDE LEVEL 28 MMOL/L (20-31); CHLORIDE LEVEL 103 MMOL/L (98-107); CREATININE FOR GFR 0.60 MG/DL (0.55-1.30); GLOMERULAR FILTRATION RATE > 90.0 (>58); POTASSIUM SERUM 4.0 MMOL/L (3.5-5.1); SODIUM LEVEL 139 MMOL/L (136-145)
[2025-02-06 19:09] LABS: PLATELET COUNT, AUTOMATED 157 10^3/uL (150-450)
[2025-02-06 19:12] LABS: ESTIMATED AVERAGE GLUCOSE 206.0 MG/DL (60-110)
== END ==
LOC: M WUC 13:14
PROVIDERS: ATTEND Physician Assistant Surgical
DX: Z01.812 Encounter for preprocedural laboratory examination (principal); Z86.39 Personal history of other endocrine, nutritional and metabolic disease; E66.813 Obesity, class 3; E66.01 Morbid (severe) obesity due to excess calories; Z68.42 Body mass index [BMI] 45.0-49.9, adult